=== PATIENT | female | born 1980 | race Caucasian/White ===

== ENCOUNTER 2023-05-19 08:46 | Outpatient (REF) | payer MEDICAID, OTHER, SELFPAY | END 2023-05-19 08:47 | disposition home or self-care (01) | LOC: HO.MAMMO 08:46 | PROVIDERS: Visit Provider Family Medicine | DX: Z12.31 Encounter for screening mammogram for malignant neoplasm of breast (principal) | CPT/HCPCS: 77063; 77067 ==

== ENCOUNTER → 2023-05-19 09:15 | Outpatient (BNV) | payer SELFPAY | PROVIDERS: Visit Provider Radiology Diagnostic Radiology | DX: Z12.31 Encounter for screening mammogram for malignant neoplasm of breast (principal) | CPT/HCPCS: 77063; 77067 ==

== ENCOUNTER 2023-07-15 09:37 | Outpatient (REF) | payer MEDICAID, OTHER, SELFPAY ==
[2023-07-15 14:32] LABS: MANUAL DIFF FLAG NO
[2023-07-15 14:37] LABS: Basophils Absolute Auto 0.1 X10*3/uL (0.0-0.2); Basophils Percent Auto 0.5 % (0-2); Eosinophils Absolute Auto 0.1 X10*3/uL (0.0-0.4); Hematocrit 43.1 % (37.0-47.0); Imm Gran Abs Auto 0.04 X10*3/uL (0.00-0.03); Imm Gran Pct Auto 0.3 % (0.0-0.4); Lymphocytes Absolute Auto 2.2 X10*3/uL (1.2-4.9); Lymphocytes Percent Auto 17.4 % (20-40); Mean Corpuscular HGB Conc 32.5 g/dl (31.0-35.0); Mean Corpuscular Hemoglobin 30.1 pg (27.0-33.0); Mean Corpuscular Volume 92.7 fL (80.0-98.0); Monocytes Absolute Auto 0.8 X10*3/uL (0.1-1.2); Monocytes Percent Auto 6.5 % (2-11); Neutrophils Absolute Auto 9.3 x10*3/uL (2.0-8.3); Neutrophils Percent Auto 74.3 % (45-73); Platelet Count 302 X10*3/uL (160-400); Red Blood Count 4.65 X10*6/uL (4.20-5.50); Red Cell Distribution Width 13.9 % (11.0-16.0); White Blood Count 12.5 X10*3/uL (4.8-10.8)
[2023-07-15 15:18] LABS: Alanine Aminotransferase 9 U/L (0-31); Albumin Level 4.2 g/dL (3.5-5.0); Alkaline Phosphatase 46 U/L (39-117); Anion Gap 12 (12-20); Aspartate Amino Transferase 17 U/L (5-31); Bilirubin Total 0.4 mg/dL (0.0-1.0); Blood Urea Nitrogen 13 mg/dL (9-16); Calcium 9.5 mg/dL (8.4-10.2); Carbon Dioxide 24 mmol/L (22-29); Chloride 108 mmol/L (96-108); Cholesterol 200 mg/dL (<200); Estimated Glomerular Filt Rate > 60; Glucose Fasting 78 mg/dL (60-99); HDL Cholesterol 67 mg/dL (>40); LDL Cholesterol Calculated 117 mg/dL (<100); Potassium 3.8 mmol/L (3.3-5.1); Sodium 140 mmol/L (135-145); Total Protein 7.5 g/dL (6.5-8.0); Triglycerides 82 mg/dL (<150)
[2023-07-15 15:19] LABS: Influenza A PCR NEGATIVE (Negative); Influenza B PCR NEGATIVE (Negative); Resp Syncy Virus RNA Qual PCR NEGATIVE (Negative); SARS COV2 PCR INHOUSE NEGATIVE (Negative)
[2023-07-15 15:20] LABS: TSH reflex Free T4 1.35 uIU/mL (0.32-4.0)
[2023-07-16 03:32] LABS: HIV AB/AG Nonreactive (Nonreactive); HIV Num 1 0.29 S/CO (0.00-0.99); ~HepC Num1 0.09 S/CO (0.00-0.79); ~Hepatitis C Antibody Nonreactive (Nonreactive)
== END 2023-07-15 09:38 | disposition home or self-care (01) ==
LOC: HO.CHCLDS 09:37
PROVIDERS: Visit Provider Family Medicine
DX: Z11.4 Encounter for screening for human immunodeficiency virus [HIV] (principal); Z11.52 Encounter for screening for COVID-19; J06.0 Acute laryngopharyngitis; F50.2 Bulimia nervosa
CPT/HCPCS: 0241U; 36415; 80053; 80061; 84443; 85025; 86803; 87389

== ENCOUNTER 2024-11-08 17:38 | Outpatient (REF) | payer MEDICAID, OTHER, SELFPAY ==
[2024-11-16 09:36] LABS: HPV Genotype 16 Negative (Negative); HPV Genotype 18 Negative (Negative); HPV High Risk Positive (Negative)
== END 2024-11-08 17:39 | disposition home or self-care (01) ==
LOC: HO.CHCLNP 17:38
PROVIDERS: Visit Provider Advanced Practice Midwife
DX: N93.9 Abnormal uterine and vaginal bleeding, unspecified (principal); Z12.4 Encounter for screening for malignant neoplasm of cervix; R87.810 Cervical high risk human papillomavirus (HPV) DNA test positive; N87.0 Mild cervical dysplasia; N39.3 Stress incontinence (female) (male); Z11.3 Encounter for screening for infections with a predominantly sexual mode of transmission; Z97.5 Presence of (intrauterine) contraceptive device
CPT/HCPCS: 87491; 87591; 87626; 87661; 88175

== ENCOUNTER 2024-11-14 12:32 | Outpatient (REF) | payer MEDICAID, OTHER, SELFPAY ==
--- NOTE | ~2024-11-14 | US_ITS ---
CLINICAL HISTORY: bleeding with IUD US pelvis transvaginal Comparison: None Findings: Transvaginal scanning performed. The uterus is 7.9 cm length. Normal myometrium. Well-positioned IUD limits interpretation of the endometrium. Right ovary 1.3 x 1.1 x 1.5 cm. 7 mm follicle noted. Left ovary 2.9 x 1.5 x 2.0 cm. 14 mm simple cyst noted Normal color Doppler of both ovaries. Trace free fluid. IMPRESSION: Well-positioned IUD. Trace free fluid in the cul-de-sac, likely physiologic. This document has been electronically signed by: Chidi Herrera MD on 11/15/2024 17:22:43
--- OUTSIDE RECORDS SUMMARY | 2024-11-14 14:54 | XMS_ITS | Encounter Summary ---
Author Organization [employer] Address [address] [place] [address] Care Team Providers Care Quality Assurance Group Leader Name Role Phone Lupe Leal MD Primary Care Provider [phone] Reason for Visit * Reason Comments Med Refill Encounter Details Date Type Department Care Team ([facility] st Contact Info) Description 10/23/2024 Refill [facility] MED & PEDS [address] [place] [address] Lupe Leal MD [address] [place] [address] Anxiety Social History Tobacco Use Types Packs/Day Years Used Date Smoking Tobacco: Every Day Cigarettes Passive Smoke Exposure: Never Smokeless Tobacco: Never Alcohol Use Standard Drinks/Week Comments Never 0 (1 standard drink = 0.6 oz pur e alcohol) Depression Answer Date Recorded Patient Health Questionnaire-9 Score 16 11/08/2022 Housing Stability Answer Date Recorded What is your housing situation today? I have khari gamboa 09/12/[address] you li ve. Do you have problems with any of the following? None of the above 09/12/2024 Food Insecurity Answer Date Recorded Within the past 12 months, y ou worried that your food would run out before you got money to buy more: Never True 09/12/2024 Within the past 12 months,th e food you bought just didn't last and you didn't have enough money to get more: Never True Transportation Answer Date Recorded In the past 12 months, has l ack of transportation kept you from medical appts, meetings, work or from getting things needed for daily living? No 09/12/2024 Utilities Answer Date Recorded In the past 12 months, has t he electric, gas, oil or water company threatened to shut off services in your home? No 09/12/2024 Depression Answer Date Recorded Patient Health Questionnaire-2 Score 3 11/08/2022 Internet Access Answer Date Recorded Internet Access Q1 Yes 09/12/2024 Internet Access Q2 Not on file 09/12/2024 Comments Unknown Sex and Gender Information Value Date Recorded Sex Assigned at Female 06/28/2022 10:35 AM EDT Legal Sex Female 10:35 AM EDT Gender Identity Female 06/28/2022 10:35 AM EDT Sexual Orientation Choose not to disclose 2021 10:35 AM EDT documented as of this encounter Plan of Treatment Not on file documented as of this encounter Visit Diagnoses Diagnosis Anxiety Anxiety state, unspecified documented in this encounter Additional Health Concerns Assessment Noted Time PHQ-9 Depression Total Score: 16 023 10:38 AM EDT documented as of this encounter Care Teams Quality Assurance Group Leader Relationship Specialty Start Date End Date Lupe Leal MD [address] [place] [address] PCP - General Family Medicine 07/10/20 documented as of this encounter
--- OUTSIDE RECORDS SUMMARY | 2024-11-14 14:54 | XMS_ITS | Encounter Summary ---
Author Organization [employer] Address [address] [place] [address] Care Team Providers Care Building Materials Sales Attendant Name Role Phone Lupe Leal MD Primary Care Provider [phone] Encounter Details Date Type Department Care Team (Latest Contact Info) Description 11/08/2024 Travel Social History Tobacco Use Types Packs/Day Years Used Date Smoking Tobacco: Every Day Cigarettes Passive Smoke Exposure: Never Smokeless Tobacco: Never Alcohol Use Standard Drinks/Week Comments Never 0 (1 standard drink = 0.6 oz pur e alcohol) Depression Answer Date Recorded Patient Health Questionnaire-9 Score 18 11/01/2024 Patient Health Questionnaire-9 Score 18 11/01/2024 Last PHQ-9: Questionnaire Data Not on file 0 11/01/2024 Housing Stability Answer Date Recorded What is your housing situation today? I have khari sing 09/12/[address] you li [...] Answer Date Recorded Patient Health Questionnaire-2 Score 6 11/01/2024 Internet Access Answer Date Recorded Internet Access Q1 Yes 09/12/2024 Internet Access Q2 Not on file 09/12/2024 Comments No Sex and Gender Information Value Date Recorded Sex Assigned at Female 06/28/2022 10:35 AM EDT Legal Sex Female 10:35 AM EDT Gender Identity Female 06/28/2022 10:35 AM EDT Sexual Orientation Choose not to disclose 2021 10:35 AM EDT documented as of this encounter Plan of Treatment Not on file documented as of this encounter Visit Diagnoses Not on filedocumented in this encounter Additional Health Concerns Assessment Noted Time PHQ-9 Depression Total Score: 18 025 11:14 AM EST documented as of this encounter Care Teams Building Materials Sales Attendant Relationship Specialty Start Date End Date Lupe Leal MD [address] [place] [id number] PCP - General Family Medicine 07/10/20 documented as of this encounter
--- OUTSIDE RECORDS SUMMARY | 2024-11-14 14:54 | XMS_ITS | Encounter Summary ---
Author Organization [employer] Address [address] [place] [address] Care Team Providers Care Track Announcer Name Role Phone Lupe Leal MD Primary Care Provider [phone] Reason for Visit * Reason Onset Date Comments Med Refill 04/06/2024 Encounter Details Date Type Department Care Team (Late st Contact Info) Description 04/06/2024 Telephone [facility] [address] [place] [address] Lupe Leal MD [address] [place] [address] Med Refill Social History Tobacco Use Types Packs/Day Years Used Date Smoking Tobacco: Every Day Cigarettes Passive Smoke Exposure: Never Smokeless Tobacco: Never Alcohol Use Standard Drinks/Week Comments Never 0 (1 standard drink = 0.6 oz pur e alcohol) Depression Answer Date Recorded Patient Health Questionnaire-9 Score 16 11/08/2022 Housing Stability Answer Date Recorded What is your housing situation today? I have khari gamboa 06/20/[address] you li ve. Do you have problems with any of the following? None of the above 06/20/2023 Food Insecurity Answer Date Recorded Within the past 12 months, y ou worried that your food would run out before you got money to buy more: Never True 06/20/2023 Within the past 12 months,th e food you bought just didn't last and you didn't have enough money to get more: Never True Transportation Answer Date Recorded In the past 12 months, has l ack of transportation kept you from medical appts, meetings, work or from getting things needed for daily living? No 06/20/2023 Utilities Answer Date Recorded In the past 12 months, has t he electric, gas, oil or water company threatened to shut off services in your home? 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
--- OUTSIDE RECORDS SUMMARY | 2024-11-14 14:54 | XMS_ITS | Encounter Summary ---
Author Organization [employer] Address [address] [place] [address] Care Team Providers Care Simulation Technician Name Role Phone Lupe Leal MD Primary Care Provider [phone] Reason for Referral * Imaging (Urgent) - Authorized Specialty Diagnoses / Procedures Referred By Contac t Referred To Contact Radiology Diagnoses Abnormal uterine bleeding Checking of intrauterine device Procedures US Pelvis Transvaginal Chantel Feliz CNM [address] [place] [address] Phone: tel: fax: [address] Phone: tel: fax: Referral ID Status Reason Start Date Expiration Date V isits Requested Visits Authorized [id number] Authorized 11/08/2024 11/08/2025 1 1 * Imaging (Urgent) - Authorized Specialty Diagnoses / Procedures Referred By Contac t Referred To Contact Radiology Diagnoses Abnormal uterine bleeding Checking of intrauterine device Procedures Us Pelvis complete Chantel Feliz CNM [address] [place] [address] Phone: tel: fax: [address] Phone: tel: fax: Referral ID Status Reason Start Date Expiration Date V isits Requested Visits Authorized [id number] Authorized 11/08/2024 11/08/2025 1 1 Reason for Visit * Reason Comments Gynecologic Exam Encounter Details Date Type Department Care Team (Latest Contact Info) Description 11/08/2024 11:00 AM EDT Procedure Visit [facility] MED & PEDS [address] [place] [address] Chantel Feliz CNM [address] [place] [address] Abnormal uterine bleeding (Primary Dx); Checking of intrauterine device; Cervical cancer screening; Encntr screen for infections w sexl mode of transmiss Social History Tobacco Use Types Packs/Day Years [...] AM EDT documented as of this encounter Last Filed Vital Signs Vital Sign Reading Time Taken Comments Blood Pressure 106/59 11/08/2024 10:47 AM EDT Pulse 74 11/08/2024 10:47 AM EDT Temperature 36.7 ??C (98.1 ??F) 11/08/2024 10:47 AM E DT Respiratory Rate 20 11/08/2024 10:47 AM EDT Oxygen Saturation 98% 11/08/2024 10:47 AM EDT Inhaled Oxygen Concentration - - Weight 50.8 kg (112 lb) 11/08/2024 10:47 AM EDT Height 154.9 cm (5' 1 ) 11/08/2024 10:47 AM EDT Body Mass Index 21.16 11/08/2024 10:47 AM EDT documented in this encounter Progress Notes * Chantel Feliz CNM - 11/08/2024 11:00 AM EDT Subjective Patient ID: Ese Bowen is a 44 y.o. female who presents for AUB Mirena inserted in 2018. Using for menstrual suppression. Largely amenorrheic until about 3 months ago. Now notes monthly bleeding with cramping. Last sexually active about 4 months ago. . No other vaginal or urinary symptoms. Wonders if she is menopausal. Notes some vasomotor symptoms whichare manageable. Pap NIL/HPV neg 09/2020. Normal TSH and hemoglobin/hematocrit in 2022. Patient seen in conjunction with Marjorie Garcia, NATALIE student. I was present for and confirmed all pertinent elements in the history, exam, assessment of the patient, and the plan of care, and agree with all findings. Review of Systems Genitourinary: Positive for menstrual problem. Negative for dyspareunia, dysuria, frequency, genital sores, hematuria, pelvic pain, urgency, vaginal bleeding, vaginal discharge and vaginal pain. No abnormal pap, no abnormal bleeding Objective BP 106/59 (BP Location: Right arm, Patient Position: Sitting, BP Cuff Size: Adult) Pulse 74 Temp 98.1 ??F (36.7 ??C) (Oral) Resp 20 Ht 5' 1 (1.549 m) Wt 112 lb (50.8 kg) SpO2 98% BMI 21.16 kg/m?? Physical Exam Exam conducted with a boarder machine present (Chantel Feliz CNM). Constitutional: Appearance: Normal appearance. Genitourinary: General: Normal vulva. Labia: Right: No rash, tenderness, lesion or injury. Left: No rash, tenderness, lesion or injury. Vagina: Normal. No signs of injury and foreign body. No vaginal discharge, erythema, tenderness, bleeding or lesions. Cervix: No cervical motion tenderness, discharge, friability, lesion, erythema, cervical bleeding or eversion. Uterus: Normal. Not enlarged and not tender. Adnexa: Right adnexa normal and left adnexa normal. Right: No mass, tenderness or fullness. Left: No mass, tenderness or fullness. Comments: IUD strings noted. Body of IUD nonpalpable Neurological: Mental Status: She is alert. Psychiatric: Mood and Affect: Mood normal. Behavior: Behavior normal. Assessment/Plan Diagnoses and all orders for this visit: Abnormal uterine bleeding - POCT , urine manually resulted - STI testing add on (NG, CT, Trich) - Pap Smear - Us Pelvis complete; Future - US Pelvis Transvaginal; Future test negative. Sounds like resumption of monthly menses with cramping, which makes sense as IUD as only indicated for menstrual suppression for 5 years. Pap and STI testing sent, ultrasoundordered as precaution. If all normal, would advise replacement of Could consider checking FSH/estradiol but these lab results vary widely in perimenopause. If vasomotor symptoms bothersome, will offer treatment. Checking of intrauterine device - Us Pelvis complete; Future - US Pelvis Transvaginal; Future Benign exam today. Reviewed Mirena indicated for 8 years for contraception, but 5 years for treatment of heavy menses. If no worrisome findings on labs/ultrasound, would advise replacement. Cervical cancer screening - Pap Smear Cotest today. Repeat 5 years if normal/HPV negative. Encntr screen for infections w sexl mode of transmiss - STI testing add on (NG, CT, Trich) Pap based STI testing sent as precaution. documented in this encounter Plan of Treatment Scheduled Orders Name Type Priority Associated Diagnoses Orde r Schedule STI testing add on (NG, CT, Trich) Pathology and Cytology Routine Abnormal uterine bleeding Encntr screen for infections w sexl mode of transmiss Ordered: 11/08/2024 Pap Smear Pathology and Cytology Routine Abnormal uterine bleeding Cervical cancer screening Ordered: 11/08/2024 Us Pelvis complete Imaging Urgent Abnormal uterine bleeding Checking of intrauterine device Expected: 11/08/2024, Expires: 11/08/2025 US Pelvis Transvaginal Imaging Urgent Abnormal uterine bleeding Checking of intrauterine device Expected: 11/08/2024, Expires: 11/08/2025 documented as of this encounter Procedures Procedure Name Priority Date/Time Associated Diagnosis Comments POCT , URINE Routine 11/08/2024 11:45 AM EDT Abnormal uterine bleeding documented in this encounter Results * POCT , urine manually resulted (11/08/2024 11:45 AM EDT) Preg Test, Ur Negative Negative, Indeterminate, None Detected, Invalid, Specimen unsatisfactory for evaluation, Weakly Positive QC Media Lot # Comment:[id number] Lot# Expiration Date Comment:06/20/2025 Urine 11/08/2024 11:4 5 AM EDT Chantel Feliz CNM POINT OF CARE TEST ENTER/ EDIT ORDERABLES Final Result documented in this encounter Visit Diagnoses Diagnosis Abnormal uterine bleeding- Primary Unspecified disorder of menstruation and other abnormal bleeding from female genital tract Checking of intrauterine device Cervical cancer screening Screening for malignant neoplasm of the cervix Encntr screen for infections w sexl mode of transmiss documented in this encounter Additional Health Concerns Assessment Noted Time PHQ-9 Depression Total Score: 18 025 11:14 AM EST documented as of this encounter Care Teams Simulation Technician Relationship Specialty Start Date End Date Lupe Leal MD [address] [place] [address] PCP - General Family Medicine 07/10/20 documented as of this encounter
--- OUTSIDE RECORDS SUMMARY | 2024-11-14 14:54 | XMS_ITS | Encounter Summary ---
Author Organization [employer] Address [address] [facility] [place] [address] Care Team Providers Care Oracle Apex Developer Name Role Phone Lupe Leal MD Primary Care Provider Encounter Details Date Type Department Care Team (Latest Contact Info) Description 08/14/2021 Abstract [facility] Dental, Provider, DDS Social History Tobacco Use Types Packs/Day Years Used Date Smoking Tobacco: Never Assessed Comments Unknown Sex and Gender Information Value [...] Diagnoses Not on filedocumented in this encounter Care Teams Oracle Apex Developer Relationship Specialty Start Date End Date Lupe Leal MD [address] [place] [id number] PCP - General Family Medicine 07/10/20 documented as of this encounter
--- OUTSIDE RECORDS SUMMARY | 2024-11-14 14:54 | XMS_ITS | Encounter Summary ---
Author Organization [employer] Address [address] [place] [address] Care Team Providers Care Java Flex Developer Name Role Phone Lupe Leal MD Primary Care Provider [phone] Encounter Details Date Type Department Care Team (Latest Contact Info) Description 05/24/2019 Abstract [facility] Dental, Provider, DDS Social [...] on filedocumented in this encounter Care Teams Java Flex Developer Relationship Specialty Start Date End Date Lupe Leal MD [address] [place] [address] PCP - General Family Medicine 07/10/20 documented as of this encounter
--- OUTSIDE RECORDS SUMMARY | 2024-11-14 14:54 | XMS_ITS | Clinical Summary ---
Author Organization [employer] Address [address] [facility] [address] [place] [address] Care Team Providers Care Sheet Manager Name Role Phone Lupe Leal MD Primary Care Provider [phone] Allergies No known active allergies Medications * This document contains information received from the source organization and may not represent a complete record from that organization. triamcinolone (Kenalog) 0.5 % ointment apply by topical route 2 times every day a thin layer to the affected area(s) 04/12/20 22 Active nicotine polacrilex (Nicorette) 2 MG gum chew 1 piece of gum by oral route every 2 hours as needed and as directed 12/31/19 21 Active Nicotine 21-14-7 MG/24HR kit Use 21 mg patch for 4 weeks, then 14 mg for 2 weeks and then 7 mg for 2 weeks (8 weeks total) 12/31/19 21 Active meclizine (Antivert) 25 MG tablet take 1 tablet by oral route 3 times every day as needed 11/24/19 22 Active aspirin-acetam inophen-caffei ne (Excedrin Migraine) 250-250-65 MG tablet Take 2 tablet every 8 hours as needed for headache 11/24/19 22 Active gabapentin (Neurontin) 300 MG capsuleIndicat ions:Anxiety Take 1 capsule (300 mg) by mouth at bedtime. 90 capsule 1 10/12/19 24 Active Multiple Vitamin (multivitamin) tablet Take 1 tablet by mouth in the morning. 90 tablet 1 11/11/19 24 Active magnesium, as gluconate, (Magonate) 500 (27 Mg) MG tablet Take 1 tablet (27 mg) by mouth 2 times daily. 180 tablet 1 11/11/19 24 Active folic acid (Folvite) 400 MCG tablet Take 1 tablet (0.4 mg) by mouth in the morning. 90 tablet 1 11/11/19 24 Active thiamine (Vitamin B-1) 500 MG tablet Take 1 tablet (500 mg) by mouth in the morning. 90 tablet 1 11/11/19 24 Active topiramate (Topamax) 100 MG tablet TAKE ONE TABLET EVERY NIGHT AT BEDTIME 90 tablet 1 08/17/20 24 Active escitalopram (Lexapro) 10 MG tabletIndicati ons:Anxiety Take 1 tablet (10 mg) by mouth Once per day. 30 tablet 2 09/12/19 25 025 Active hydrOXYzine pamoate (Vistaril) 25 MG capsuleIndicat ions:Anxiety TAKE ONE CAPSULE THREE TIMES DAILY NEEDED FOR ANXIETY 270 capsule 1 10/23/19 25 Active busPIRone (Buspar) 7.5 MG tablet Take 1 tablet (7.5 mg) by mouth 2 times daily. 60 tablet 2 11/06/19 25 Active QUEtiapine (SEROquel) 50 MG tablet Take 1 tablet (50 mg) by mouth at bedtime. 90 tablet 1 11/06/19 25 Active QUEtiapine (SEROquel) 50 MG tablet Take 1 tablet (50 mg) by mouth at bedtime. 90 tablet 1 03/02/20 24 025 Discontinued(Re order (will not trigger notification to Pharmacy)) hydrOXYzine pamoate (Vistaril) 25 MG capsuleIndicat ions:Anxiety TAKE ONE CAPSULE BY MOUTH THREE TIMES DAILY NEEDED FOR ANXIETY 270 capsule 1 04/18/20 24 025 Discontinued busPIRone (Buspar) 7.5 MG tablet Take 1 tablet (7.5 mg) by mouth 2 times daily. 60 tablet 2 08/31/19 25 025 Discontinued(Re order (will not trigger notification to Pharmacy)) Active Problems Problem Noted Date Diagnosed Date Generalized bloating 03/02/2024 Assessment & Plan (03/02/2024 6:04 PM EDT): Relevant orders: Buspirone (Buspar) 7.5 MG tablet -Pt was advised if bloating continues despite using the combination of meds, to move forward with the labs so we can properly access her condition. Grief 11/16/2023 Moderate episode of recurrent major depressive d isorder 11/16/2023 Sore throat and laryngitis 07/15/2023 Assessment & Plan (07/15/2023 8:53 AM EST): Upon examination was noticed that patient was congested, however, there were no signs of infections. Therefore, patient will be prescribed antibiotics and will be tested for Rap.COVID, Flu, and Influenza. Bulimia nervosa, purging type 11/08/2022 Assessment & Plan (03/02/2024 6:07 PM EDT): Pt advised to continue medication as prescribed -Relevant orders: Topiramate (Topamax) 100 MG tablet Assessment & Plan (07/15/2023 8:58 AM EST): Patient still presents visit with complaints of bulimia nervosa; patient will be prescribed Topiramate. Assessment & Plan (04/07/2023 10:58 AM EDT): Will send labs to check levels. Anxiety 11/08/2022 Assessment & Plan (03/02/2024 6:05 PM EDT): -Pt was advised to continue medication as prescribed Relevant orders: Quetiapine (SEROquel) 50 MG tablet Assessment & Plan (01/17/2024 11:43 AM EDT): Patient reports she is doing ok in terms of her anxiety, but feels since start SGA her compulsion has worsening and is eating more than she used to. Will d/ seroquel. Assessment & Plan (11/17/2023 9:34 AM EDT): At this moment, will continue with buspar, lexapro and seroquel for her depression/anxiety, higher dose topamax helpful for her binging. At this moment recommend to cont with therapy. Try to reattempt contact with [facility] [employer] and will f/up in 4-6 weeks via telemedicine Assessment & Plan (11/18/2023 10:52 AM EDT): Patient has worsening of her symptoms at this moment, will add buspar to her regimen, will add morning Seroquel as a adjuvant to her SNRI. Cont afternoon seroquel and will incr dose of topamax to help with her bulimia, I have request to talk with patient to process what has been happening. Will f/up in 1 week. Assessment & Plan (07/18/2023 9:41 AM EST): Stable, no further changes, recommended to f/up with therapist. Assessment & Plan (05/23/2023 9:15 AM EDT): Placed on higher dose lexapro, rechecking in 6 weeks. Added seroquel for potentiation. Cont hydroxyzine. At this point, will send referral to therapy (may have to use reel hooker) and prescriber. Failed 2 meds (SSRI, snri) and adjuctive with SGA. Assessment & Plan (04/07/2023 10:58 AM EDT): Poor anxiety management, currently on 200 mg on sertraline. At this point will transition her out of sertraline and start on Lexapro 10 mg. Advised patient to take 1 1/2 for 3 days, then 1, then 1/2 and then discontinue and start on low dose lexapro. Will follow up in 6 weeks. Encounters * This document contains information received from the source organization and may not represent a complete record from that organization. Date Type Department Care Team Description 11/08/2024 11:00 AM EDT Procedure Visit [facility] [address] [place] [address] Chantel Feliz CNM Abnormal uterine bleeding (Primary Dx); Checking of intrauterine device; Cervical cancer screening; Encntr screen for infections w sexl mode of transmiss 11/08/2024 Travel 11/05/2024 Refill [facility] [address] [place] [address] Lupe Leal MD 10/23/2024 Refill [facility] [address] [place] [address] Lupe Leal MD Anxiety 10/03/2024 3:20 PM EST Office Visit [facility] [address] [place] [address] Angie Canela MD Anxiety (Primary Dx); Vaginal bleeding 10/03/2024 Travel 10/03/2024 Telephone [facility] [address] [place] [address] Lupe Leal MD Nurse Triage 09/12/2024 11:15 AM EST Office Visit [facility] [address] [place] [address] Calypso, Laura, HAIR WORKER Anxiety (Primary Dx) 09/12/2024 Travel 09/10/2024 Telephone [facility] [address] [place] [address] Lupe Leal MD Nurse Triage 08/31/2024 Refill [facility] [address] [place], [place] [phone] Lupe Leal MD 08/17/2024 Refill [facility] [address] [place] [address] Lupe Leal MD from Last 3 Months Immunizations Name Administration Dates Next Due Influenza injectable quadrivalent preservative f ree 07/31/2021,07/10/2020 Social History Tobacco Use Types Packs/Day Years Used Date Smoking Tobacco: Every Day Cigarettes Passive Smoke Exposure: Never Smokeless Tobacco: Never Tobacco Cessation:Ready to Q uit: No; Counseling Given: Yes Alcohol Use Standard Drinks/Week Comments Never 0 [...] not to disclose 2021 10:35 AM EDT Last Filed Vital Signs Vital Sign Reading [...] Mass Index 21.16 11/08/2024 10:47 AM EDT Plan of Treatment Health Maintenance Due Date Last Done Comments DTaP/Tdap/Td Vaccines (1 - Tdap) 1999 Hepatitis B Vaccines (1 of 3 - 19+ 3-dose series) 1999 Pneumococcal Vaccine: Pediatrics (0 to 5 Years) and At-Risk Patients (6 to 49) Years) (1 of 2 - PCV) 1999 COVID-19 Vaccine (4 - 2023-2 5 season) 2024 07/03/2021, 01/03/2021, 12/13/2020 Influenza Vaccine (#1) 2024 , 07/10/2020 Depression Monitoring (PHQ-9) 05/04/2025, 11/01/2024 Mammogram 05/19/2025 05/19/2023 Alcohol/Substance Use Screening 09/12/2025 09/12/2024 SDOH Screening 09/12/2025 09/12/2024 Tobacco Screening 10/03/2025 10/03/2024 Cervical Cancer Screening 10/07/2025 HPV/Cotest 10/07/2025 10/07/2020 Pap Smear 10/07/2025 10/07/2020 Depression Screening 11/01/2025 11/01/2024, 11/01/2024 Family Planning (PISQ) 11/08/2025 11/08/2024 Lipid Panel 07/15/2028 07/15/2023, 07/10/2020 Zoster Vaccines (1 of 2) 2030 RSV Patients and Patients Aged 60 years or older (1 - 1-dose 75+ series) 2055 HIV Screening Completed 07/15/2023, 07/10/2020 Hepatitis C Screening Completed 07/15/2023 , 07/10/2020 HIB Vaccines Aged Out No longer eligi ble based on patient's age to complete this topic HPV Vaccines Aged Out No longer eligi ble based on patient's age to complete this topic Hepatitis A Vaccines Aged Out No long er eligible based on patient's age to complete this topic IPV Vaccines Aged Out No longer eligi ble based on patient's age to complete this topic Meningococcal Vaccine Aged Out No justine armida eligible based on patient's age to complete this topic RSV under 20 months Aged Out No longe r eligible based on patient's age to complete this topic Rotavirus Vaccines Aged Out No longer eligible based on patient's age to complete this topic Procedures Procedure Name Priority Date/Time Associated Diagnosis Comments POCT , URINE Routine 11/08/2024 11:45 AM EDT Abnormal uterine bleeding HEPATITIS C ANTIBODY Routine 07/15/2023 9:41 AM EST Encounter for health-related screening HIV 1/2 ANTIGEN/ANTIBODY, FOURTH GENERATION W/RFL Routine 07/15/2023 9:41 AM EST Encounter for health-related screening LIPID PANEL, STANDARD Routine 07/15/2023 9:41 AM EST Bulimia nervosa, purging type BI MAMMOGRAM SCREENING TOMOSYNTHESIS BILATERAL Routine 05/19/2023 9:30 AM EDT HPV MRNA E6/E7 Routine 10/07/2020 2:33 PM EST THINPREP IMAGING SYSTEM PAP Routine 10/07/2020 2:33 PM EST from Last 3 Months or Most Recently Relevant to Health Maintenance Results * POCT , urine manually resulted (11/08/2024 11:45 AM EDT) Preg Test, Ur Negative Negative, Indeterminate, None Detected, Invalid, Specimen unsatisfactory for evaluation, Weakly Positive QC Media Lot # Comment:[id number] Lot# Expiration Date Comment:06/20/2025 Urine 11/08/2024 11:4 5 AM EDT Chantel Feliz CNM POINT OF CARE TEST ENTER/ EDIT ORDERABLES Final Result * Hepatitis C Ab (07/15/2023 9:41 AM EST) Hepatitis C Antibody Nonreactive Nonreactive [facility] Comment:Antibodies to HCV no t detected; does not exclude early acuteHCV infection. Blood 07/15/2023 9:41 AM EST 07/15/2023 2:22 PM EST Lupe Leal MD LAB BLOOD ORDERABLES Final Re sult Performing Organization Address City/[facility]/ZIP Co de Phone Number [facility] [address] [place] [phone] * HIV-1/2 Antigen and Antibodies, Fourth Generation, with Reflexes (07/15/2023 9:41 AM EST) HIV AB/AG Nonreactive Nonreactive [facility] Comment:HIV-1 p24 Ag and/or HIV-1/HIV-2 Ab not detected.A test result that is nonreactive does not exclude thepossibility of exposure to or infection with HIV-1 and/orHIV-2. Nonreactive results in this assay for individualswith prior exposure to HIV-1 and/or HIV-2 may be due toantigen and antibody levels that are below the limit ofdetection of this assay.The HEAL[employer] HIV Ag/Ab Combo assay result andsupplemental assay results should be interpreted inconjunction with the patient's clinical presentation,history and other laboratory results. If the results areinconsistent with clinical evidence, additional testing issuggested to confirm the result. Blood Venous blood specimen / Unknown 07/15/2023 9:41 AM EST 07/15/2023 2:22 PM EST us Lupe Leal MD LAB BLOOD ORDERABLES Final Re sult Performing Organization Address City/[facility]/ZIP Co de Phone Number [facility] [address] [place] [phone] * (ABNORMAL) Lipid Panel, Standard (07/15/2023 9:41 AM EST) Triglycerides 82 <150 mg/dL [facility] Comment:Desirable Triglyceri de: less than 150 mg/dLBorderline High Triglyceride 150-199 mg/dLHigh Triglyceride: 200-499 mg/dLVery High Triglyceride: greater than or equal to 5OO mg/dL Cholesterol 200(H) <200 mg/dL [facility] Comment:Desirable Cholestero l: less than 200 mg/dLBorderline High Cholesterol: 200-239 mg/dLHigh Cholesterol: greater than 239 mg/dL LDL Cholesterol Calculated 117(H) <100 mg/dL [facility] Comment:Desirable LDL: less than 100 mg/dLNear Optimal/Above Optimal LDL: 110- 129 mg/dLBorderline High LDL: 130-159 mg/dLHigh LDL: 160-189 mg/dLVery High LDL: greater than or equal to 190 mg/dL HDL Cholesterol 67 >40 mg/dL [facility] Comment:Desirable HDL: great er than 40 mg/dL Note: This HDL assay may give artificially low results in patients with liver disease. Blood Venous blood specimen / Unknown 07/15/2023 9:41 AM EST 07/15/2023 2:26 PM EST us Lupe Leal MD LAB BLOOD ORDERABLES Final Re sult [facility] [address] [place] [phone] * BI Mammogram Screening Tomosynthesis Bilateral (05/19/2023 9:30 AM EDT) Anatomical Region Laterality Modality Breast Bilateral Mammography 05/19/2023 9:30 AM EDT Narrative 06/07/2023 1:10 PM EDT ? [facility] [place] ? [address] ?[place] [address] ? Mammography Report ? Signed ? Patient: Ese Bowen ?MR#: [id number] ?? 53 ? : 1980 ?Acct:[id number] ? Age/Sex: 42 / F ?ADM Date: 09/21/23 ? Loc: HO.MAMMO ? Attending Dr: Lupe Leal MD ? Ordering Physician: Lupe Leal MD ?Results: 1Nega ?? tive ? Date of Service: 05/19/23 ?Follow Up: 1 Year From Orig ?? inal Mammogram ? Procedure(s): MM tomosynthesis screening BI ?? Accession Number(s): [id number] ? cc: Lupe Leal MD ? EXAMINATION: ?? MM SCREENING DIGITAL BREAST TOMOSYNTHESIS, BILATERAL ? CLINICAL INFORMATION: ? Screening. Asymptomatic. ? COMPARISON: ?? Mammography: This is a baseline study ? TECHNIQUE: ?? Digital breast tomosynthesis is performed in both the craniocaudal and ?? mediolateral oblique views along with computer-aided detection (CAD). ?? Synthesized 2D images are generated from the tomosynthesis. ? FINDINGS: ?? The breasts are extremely dense, which lowers the sensitivity of ?? mammography (ACR BI-RADS breast composition Category d). ? There are no significant masses, abnormal calcifications, or other ?? abnormalities. ? MM/MM tomosynthesis screening BI ?? IMPRESSION: ?? No mammographic evidence of malignancy. ? ASSESSMENT: ? BI-RADS BI-RADS 1 - Negative ? RECOMMENDATION: ?? Routine annual mammography screening. ? 1 year F/U ? This examination should not preclude the clinical evaluation of a ?? suspicious palpable abnormality. ? This patient's information was entered into a reminder system with a ?? target due date for their next mammogram. ? Dictated By: ?Analisa Vaughn MD ? Signed By: ?<Electronically signed by Analisa Vaughn MD in OV> ? 10/10/23 1306 ? DD/ 9 ? TD/TT: ? Technical Sme: ? Procedure Note Donotuseinterpreter, Image - 06/07/2023 [place] [facility] [address] [place] [address] Mammography Report Signed Patient: Yoana Bowen#: [id number] 53 : 1980Acct:[id number] Age/Sex: 42 / FADM Date: 05/19/23 Loc: HO.MAMMO Attending Dr: Lupe Leal MD Ordering Physician: Lupe Leal MDResults: 1Nega tive Date of Service: 05/19/23Follow Up: 1 Year From Orig inal Mammogram Procedure(s): MM tomosynthesis screening BI Accession Number(s): [id number] cc: Lupe Leal MD EXAMINATION: MM SCREENING DIGITAL BREAST TOMOSYNTHESIS, BILATERAL CLINICAL INFORMATION: Screening. Asymptomatic. COMPARISON: Mammography: This is a baseline study TECHNIQUE: Digital breast tomosynthesis is performed in both the craniocaudal and mediolateral oblique views along with computer-aided detection (CAD). Synthesized 2D images are generated from the tomosynthesis. FINDINGS: The breasts are extremely dense, which lowers the sensitivity of mammography (ACR BI-RADS breast composition Category d). There are no significant masses, abnormal calcifications, or other abnormalities. MM/MM tomosynthesis screening BI IMPRESSION: No mammographic evidence of malignancy. ASSESSMENT: BI-RADS BI-RADS 1 - Negative RECOMMENDATION: Routine annual mammography screening. 1 year F/U This examination should not preclude the clinical evaluation of a suspicious palpable abnormality. This patient's information was entered into a reminder system with a target due date for their next mammogram. Dictated By: Analisa Vaughn MD Signed By: <Electronically signed by Analisa Vaughn MD in OV> 06/07/23 1306 DD/ 0930 TD/TT: Technical Sme: us Lupe Leal MD IMG BI PROCEDURES Final Resul t * THINPREP TIS PAP (10/07/2020 2:33 PM EST) Clinical Information: None given [facility] COMMENT SEE COMMENT [facility] Comment: EXPLANATORY NOTE: ? The Pap is a screening test for cervical cancer. It is ?? not a diagnostic test and is subject to false negative ?? and false positive results. It is most reliable when a ?? satisfactory sample, regularly obtained, is submitted ?? with relevant clinical findings and history, and when ?? the Pap result is evaluated along with historic and ?? current clinical information. ?? COMMENT: This Pap test has been evaluated with computer assisted technology. [facility] Monomer Purification Operator : SEE COMMENT [facility] Comment: RXB, CT(ASCP) CT screening location: [address] ??[id number] Interpretation/R esult: Negative for intraepithelial lesion or malignancy. [facility] LMP: NONE [facility]IVEN [facility] Prev. BX: NONE [facility]IV[facility] Prev. PAP: NONE [facility]IV[facility] SOURCE: None given [facility] Statement Of Adequacy: SEE COMMENT [facility] Comment: Satisfactory for evaluation. Endocervical/transformation zone component present. Age and/or menstrual status not provided 10/07/2020 2:33 PM EST us Lupe Leal MD LAB PATHOLOGY ORDERABLES Isabel calvin Result [facility] [address] * HPV mRNA E6/E7 (10/07/2020 2:33 PM EST) HPV nRNA E6/E7 Not Detected Not Detected [facility] Comment: Methodology: Dining Room Hostess-Mediated Amplification This assay detects E6/E7 viral messenger RNA (mRNA) from 14 high-risk HPV types (16,18,31,33,35,39,45,51,52,56,58,59,66,68). ? The analytical performance characteristics of this assay have been determined by [employer]. The modifications have not been cleared or approved by the FDA. This assay has been validated pursuant to the CLIA regulations and is used for clinical purposes. ?? For additional information, please refer to http://education.[employer]/UVI513m2 (This link if provided for information/ educational purposes only.) 10/07/2020 2:33 PM EST us Lupe Leal MD LAB BLOOD ORDERABLES Final Re sult [facility] [address] from Last 3 Months or Most Recently Relevant to Health Maintenance Insurance [employer] [facility] Care Teams Sheet Manager Relationship Specialty Start Date End Date Lupe Leal MD [address] [place] [phone] PCP - General Family Medicine 07/10/20
--- OUTSIDE RECORDS SUMMARY | 2024-11-14 14:54 | XMS_ITS | Encounter Summary ---
Author Organization [employer] Address [address] [facility] [address] [place] [address] Care Team Providers Care Aircraft Technician Name Role Phone Lupe Leal MD Primary Care Provider [phone] Reason for Visit * Reason Onset Date Comments Nurse Triage 10/03/2024 Encounter Details Date Type Department Care Team ([facility] st Contact Info) Description 10/03/2024 Telephone [facility] [address] [place] [address] Lupe Leal MD [address] [place], [place] [phone] Nurse Triage Social History Tobacco Use Types Packs/Day Years [...] encounter Miscellaneous Notes * Telephone Encounter - Nettie Baumann RN - 10/03/2024 11:03 AM EST Triage call with [facility] [place] [id number], Chanelle. Pt reports having some increased anxiety for last few weeks. Pt was seen in office 09/12/24 and Pt has been taking lexapro 10mg as restarted that day, seroquel with 2 tablets at bedtime some days, continues with buspar and hydroxizine as prescribed but, Pt feels is taking so much medication and just wants a referral to psychiatrist and to see PCP. PCP is unavailable for apt at this time. Pt is notsuicidal or wanting to hurt anyone else. Pt is just wanting follow up with provider as advised fromOV 09/12/24. . Pt is offered ASK apt in [facility] today at 320[address] and agrees with this disposition. Pt is given home care advice, to go for walk as needed to change environment, encouraged liquids and do something enjoyable, listening to music, reading, hobby. Pt agrees with this advice. Pt already has crisis number if needed. Insurance is verified as active prior to booking. Protocol Used: Anxiety and Panic Attack (Adult) Protocol-Based Disposition: See in Office or Video Visit within 3 Days Video visit not offered Positive Triage Questions: * Moderate anxiety (e.g., persistent or frequent anxiety symptoms; interferes with sleep, school, or work) * Panic attacks are increasing in frequency * Patient wants to be seen * All higher-acuity triage questions were negative Care Advice Discussed: * Note to Triager - Anxiety Symptoms * Reassurance and Education - Anxiety * Anxiety - Healthy Lifestyle Tips * Stress Reduction * Reasons To Call Back - Anxiety or panic attacks continue - You feel like harming yourself - You become worse * Telephone Encounter - Cara Doll - 10/03/2024 10:15 AM EST Symptom: Depression Outcome: Schedule an appointment to be seen within 3 days Reason: Caller denied all higher acuity questions The caller accepted this outcome. documented in this encounter Plan of Treatment Not on file documented as of this encounter Visit Diagnoses Not on filedocumented in this encounter Additional Health Concerns Assessment Noted Time PHQ-9 Depression Total Score: 16 023 10:38 AM EDT documented as of this encounter Care Teams Aircraft Technician Relationship Specialty Start Date End Date Lupe Leal MD [address] [place] [phone] PCP - General Family Medicine 07/10/20 documented as of this encounter
--- OUTSIDE RECORDS SUMMARY | 2024-11-14 14:54 | XMS_ITS | Encounter Summary ---
Author Organization [employer] Address [address] [place] [address] Care Team Providers Care Camp Boss Name Role Phone Lupe Leal MD Primary Care Provider [phone] Reason for Visit * Reason Onset Date Comments Med Refill 11/05/2024 Encounter Details Date Type Department Care Team ([facility] st Contact Info) Description 11/05/2024 Refill [facility] [address] [place] [address] Lupe Leal MD [address] [place] [address] Social History Tobacco Use Types Packs/Day Years [...] is your housing situation today? I have kharitaran gamboa 09/12/[address] you [...] encounter Miscellaneous Notes * Telephone Encounter - Cara Doll - 11/05/2024 9:29 AM EDT TC from pt requesting medication refill. Medications needing refill : busPIRone (Buspar) 7.5 MG tablet QUEtiapine (SEROquel) 50 MG tablet To be sent to: [facility] - [place], [place] - [facility] [address] documented in this encounter Plan of Treatment Not on file documented as of this encounter Visit Diagnoses Not on filedocumented in this encounter Additional Health Concerns Assessment Noted Time PHQ-9 Depression Total Score: 18 025 11:14 AM EST documented as of this encounter Care Teams Camp Boss Relationship Specialty Start Date End Date Lupe Leal MD [address] [place] [address] PCP - General Family Medicine 07/10/20 documented as of this encounter
--- OUTSIDE RECORDS SUMMARY | 2024-11-14 14:54 | XMS_ITS | Encounter Summary ---
Author Organization [employer] Address [address] [place] [address] Care Team Providers Care Caramel Maker Name Role Phone Lupe Leal MD Primary Care Provider [phone] Reason for Visit * Reason Onset Date Comments Nurse Triage 09/10/2024 Encounter Details Date Type Department Care Team ([facility] st Contact Info) Description 09/10/2024 Telephone [facility] [address] [place] [address] Lupe Leal MD [address] [place], [place] [id number] Nurse Triage Social History Tobacco Use Types [...] Telephone Encounter - Nettie Baumann RN - 09/10/2024 12:58 PM EST Triage call with [facility] [place] flight security [place] [id number] Pt reports it has been a year since committed suicide. Pt is having increased pressure and anxiety. Pt is at work at time of call and reports is able to go to work and finds it helpful. Pt had been speaking with a psychologist on line who speaks [place] but, found that it wasn't good for me and ended this help. Pt has since found a [place] speaking psychologist that would be inperson but, this person is not covered by Pt insurance. Pt doesn't have the name of this provider at time of call. Pt requesting to speak with provider. Pt is taking prescribed medication with some relief. Pt is given home care advice to rest as much as possible at home, stay away from caffeinated beverages, eat healthy and continue medications as prescribed. ASK apt with SHADY Lau in [facility] 09/12/24 @1115am. Pt is advised that behavioral health is available when comes for apt. Pt agrees with disposition. Insurance is verified as active prior to booking. Protocol Used: Anxiety and Panic Attack (Adult) Protocol-Based Disposition: See in Office or Video Visit within 3 Days Video visit not offered Positive Triage Question: * Patient wants to be seen * All higher-acuity triage questions were negative Care Advice Discussed: * Note to Triager - Anxiety Symptoms * Reassurance and Education - Anxiety * Anxiety - Healthy Lifestyle Tips * Avoid Caffeine * Avoid Triggers of Anxiety * Stress Reduction * Reasons To Call Back - Anxiety or panic attacks continue - You feel like harming yourself - You become worse * Telephone Encounter - Cara Doll - 09/10/2024 11:53 AM EST Symptom: Anxiety or Panic Attack Outcome: Schedule an appointment to be seen within 3 days Reason: Caller denied all higher acuity questions The caller accepted this outcome. Valve Maker needed documented in this encounter Plan of Treatment Not on file documented as of this encounter Visit Diagnoses Not on filedocumented in this encounter Additional Health Concerns Assessment Noted Time PHQ-9 Depression Total Score: 16 023 10:38 AM EDT documented as of this encounter Care Teams Caramel Maker Relationship Specialty Start Date End Date Lupe Leal MD [address] [place] [id number] PCP - General Family Medicine 07/10/20 documented as of this encounter
--- OUTSIDE RECORDS SUMMARY | 2024-11-14 14:55 | XMS_ITS | Encounter Summary ---
Author Organization [employer] Address [address] [place] [address] Care Team Providers Care Operations Lead Name Role Phone Lupe Leal MD Primary Care Provider [phone] Encounter Details Date Type Department Care Team (Latest Contact Info) Description 09/26/2018 [facility] CONVERSIONS Dental, Provider, DDS Social [...] on filedocumented in this encounter Care Teams Operations Lead Relationship Specialty Start Date End Date Lupe Leal MD [address] [place] [id number] PCP - General Family Medicine 07/10/20 documented as of this encounter
== END 2024-11-14 12:33 | disposition home or self-care (01) ==
LOC: HO.HMGCX 12:32
PROVIDERS: PCP Family Medicine; Visit Provider Advanced Practice Midwife
DX: Z30.431 Encounter for routine checking of intrauterine contraceptive device (principal); N93.9 Abnormal uterine and vaginal bleeding, unspecified
CPT/HCPCS: 76830; 76856

== ENCOUNTER → 2024-11-14 12:35 | Outpatient (BNV) | payer SELFPAY | PROVIDERS: PCP Family Medicine; Visit Provider Radiology Vascular & Interventional Radiology | DX: Z97.5 Presence of (intrauterine) contraceptive device (principal) | CPT/HCPCS: 76830; 76856 ==

== ENCOUNTER 2025-01-08 19:27 | Emergency (ER) | payer MEDICAID, OTHER, SELFPAY ==
--- NOTE | ~2025-01-08 | XR_ITS ---
CLINICAL HISTORY: Left-sided chest pain. Exam: AP and oblique views of the left ribs and frontal view of the chest. Comparison: None. Findings: No rib fractures identified. No pneumothorax or pleural effusion. Lungs are clear. Cardiac silhouette is within normal limits. Impression: No rib fracture. This document has been electronically signed by: Steven Garza MD on 01/09/2025 00:11:18
--- NOTE | ~2025-01-08 | CT_ITS ---
CLINICAL HISTORY: Left flank pain CT abdomen and pelvis without contrast Comparison: CR - XR RIBS LT MIN 3V W CXR1V - 01/08/25 23:23 EDT US - US PELVIC AND TRANSVAGINAL - 11/14/24 12:40 EDT Findings: CT abdomen: No infiltrates within the lung bases. No acute bony lesions. No rib fractures. Small bilateral renal calculi. No hydronephrosis or perinephric stranding. Simple cysts within both kidneys measuring up to 12 mm in size. No perinephric stranding. No ureteral calculi. Unenhanced liver, spleen, pancreas, gallbladder, and adrenal glands are unremarkable. Moderate fluid distention of the stomach. Small bowel loops are of normal caliber. CT pelvis: [id number] amount of stool throughout the colon. No focal areas of colonic wall thickening are identified. No findings of appendicitis. No free fluid or free air. IUD is seen within the mid uterus. IMPRESSION: 1. Nonobstructing bilateral renal calculi. 2. Negative CT of the appendix. 3. Gvjwdmfv-ur-loqhx amount of stool throughout the colon without findings of obstruction. This document has been electronically signed by: Steven Garza MD on 01/09/2025 01:38:04
--- NOTE | 2025-01-08 19:34 | ED_ITS ---
HPI - General Adult General Chief complaint: Back Pain/Injury Stated complaint: pain from stomach to back (bloating also) Time Seen by Provider: 01/08/25 22:24 Source: patient, family (Son) and cuprous chloride helper (Israeli) Mode of arrival: ambulatory Limitations: no limitations History of Present Illness ED Provider: DR. Panda HPI narrative: A 44-year-old Israeli female came in for evaluation of left flank/left-sided abdominal pain for 8 days after she pulled a heavy stove at work, pain is localized to the left side, no dysuria, no frequency urination, no hematuria, no nausea, no vomiting, normal bowel movement this morning, passing flatus, never had intra-abdominal surgery. No recent travel, no lower extremity swelling or tenderness. Related Data Previous Rx's ?Medication ?Instructions ?Recorded cyclobenzaprine 10 mg tablet 10 mg PO TID PRN muscle spasm #14 01/08/25 tabs Allergies Allergy/AdvReac Type Severity Reaction Status Date / Time No Known Allergies Allergy Verified 01/08/25 19:39 Review of Systems 2 Review of Systems: All other systems are reviewed and are negative Constitutional: Reports as per HPI and Reports no additional constitutional complaints Eyes: Reports as per HPI and Reports no additional eye complaints Reports system reviewed and no additional complaints, except as documented Cardiovascular: Reports as per HPI and Reports no additional cardiovascular complaints Respiratory: Reports as per HPI and Reports no additional respiratory complaints Gastrointestinal: Reports as per HPI and Reports no additional gastrointestinal complaints Genitourinary: Reports no additional female genitourinary complaints Musculoskeletal: Reports no additional musculoskeletal complaints Skin/Breast: Reports system reviewed and no additional complaints, except as docu Psychiatric: Reports no additional psychiatric complaints Endocrine: Reports no additional endocrine complaints Hematologic/Lymphatic: Reports no additional hematologic/lymphatic complaints Allergic/Immunologic: Reports no additional allergic/immunologic complaints Reports system reviewed and no additional complaints, except as documented and Reports Abnormal speech present [facility] Social History Social History Advance Directives: No Advance Directives Information Provided: No Do you have a plan to hurt others: No Plan Physical Exam ED Vital Signs: Vital Signs - 24 hr 01/08/25 19:36 Temperature 98.0 F Pulse Rate 65 Respiratory Rate 16 Blood Pressure 113/73 Pulse Oximetry 100 Oxygen Delivery Method Room Air BMI result Body Mass Index 20.4 Vital signs have been reviewed and appear to be correct. Blood pressure elevated. Heart rate normal. Respiratory rate normal. Temperature normal. Oxygen saturation normal. Appearance: Alert. Oriented X3. No acute distress. Head: Normal external exam. Normocephalic. Atraumatic. No Woodall signs noted. No raccoon eyes noted Eyes: PERRLA. EOMI. Conjunctiva and sclera normal. Eyelids normal. ENT: TM's Normal. Pharynx normal. Uvula midline. Moist mucous membranes. No trismus noted. No drooling noted. No muffled voice noted. Neck: Normal inspection. Neck supple. FROM. No adenopathy. Thyroid Normal. No meningeal signs. No neck mass noted. CVS: Normal heart rate and rhythm. Heart sound normal. No murmurs noted. Pulses normal throughout. Respiratory: No respiratory distress. Painless inspiration. Breath sounds normal. No wheezes/rales/rhonchi noted. Diffuse left upper thoracic/flank area of tenderness, no step-off. No accessory muscle usage noted or decreased air movement noted. Abdomen: Soft and nontender. Bowel sounds normal in all 4 quadrants. No distention noted. No organomegaly noted. No visible injury noted. Back: No CVA tenderness. Full range of motion noted. Skin: Skin warm and dry. Normal skin color. Normal skin turgor. No rashes/lesions/lacerations noted. Extremities: No lower extremity edema. Extremities exhibit normal range of motion. Extremities nontender. Neuro: Oriented X 3. Cranial nerve exam: II-XII are grossly intact No motor deficit. No sensory deficit. Reflexes normal. Course Course Course Narrative: This is a rapid medical exam performed by Norma Cotto NP: Additional HPI, ROS, PE not included below will be deferred to primary provider. Patient is a 44-year-old Israeli speaking female presenting with complaint of left thoracic back pain for the past 8 days after moving something at work. Denies urinary symptoms. States pain wraps around side to abdomen and today developed bloating to abdomen. Has been using Aleve for pain. Plan: labs, UA Reevaluation(s) Reevaluation #1: Left muscular pain after pulled heavy stove at work, labs are unremarkable, urine is clear no indication for infection or obstructive uropathy. Physical exam is consistent with pulled muscle. Patient feels better with Toradol and Dilaudid IM. Time: 23:00 Medical Decision Making Differential Diagnosis Differential Diagnoses: The differential diagnosis associated with the presentation includes (UTI, pyelonephritis, obstructive kidney stone, muscular pain, rib fracture, ACS, pneumonia, pneumothorax.) Admission/Observation Consideration of admission/observation: Escalation of care including admission/observation considered Lab Data MDM Lab Attestation statement: I reviewed the patient's lab results. 01/08/25 19:45 01/08/25 19:45 Labs: Lab Results 01/08/25 Range/Units 19:45 WBC 8.7 (4.8-10.8) X10*3/uL RBC 4.62 (4.20-5.50) X10*6/uL Hgb 13.9 (12.0-16.0) g/dl Hct 40.4 (37.0-47.0) % MCV 87.4 (80.0-98.0) fL MCH 30.1 (27.0-33.0) pg MCHC 34.4 (31.0-35.0) g/dl RDW 13.7 (11.0-16.0) % Plt Count 237 (160-400) X10*3/uL MPV 9.0 L (9.4-12.3) fL Immature Gran % (Auto) 0.2 (0.0-0.4) % Neut % (Auto) 60.9 (45-73) % Lymph % (Auto) 27.7 (20-40) % Dale % (Auto) 8.9 (2-11) % Eos % (Auto) 1.7 (0-4) % Baso % (Auto) 0.6 (0-2) % Lymph # (Auto) 2.4 (1.2-4.9) X10*3/uL Dale # (Auto) 0.8 (0.1-1.2) X10*3/uL Eos # (Auto) 0.2 (0.0-0.4) X10*3/uL Baso # (Auto) 0.1 (0.0-0.2) X10*3/uL Abs Immat Gran (auto) 0.02 (0.00-0.03) X10*3/uL Absolute Neuts (auto) 5.3 (2.0-8.3) x10*3/uL Absolute Nucleated RBC 0.000 (0.0-0.012) X10*3/uL Nucleated RBC % (auto) 0.0 (0.0-0.2) /100WBC Sodium 141 (135-145) mmol/L Potassium 3.7 (3.3-5.1) mmol/L Chloride 108 (96-108) mmol/L Carbon Dioxide 23 (22-29) mmol/L Anion Gap 14 (12-20) BUN 22 H (9-16) mg/dL Creatinine 0.71 (0.5-1.4) mg/dL Estim Creat Clear Calc 76.2 Estimated GFR > 60 Random Glucose 87 (60-115) mg/dL Calcium 9.4 (8.4-10.2) mg/dL Total Bilirubin 0.2 (0.0-1.0) mg/dL AST 22 (5-31) U/L ALT 11 (0-31) U/L Alkaline Phosphatase 37 L (39-117) U/L Total Protein 6.9 (6.5-8.0) g/dL Albumin 4.3 (3.5-5.0) g/dL Independent Interpretation I performed an independent interpretation of an: Plain X-Ray (Left ribs/chest: No acute pathology.) Radiology Impression Discussion of test interpretation with radiology: I have reviewed the radiologist's reading. Discharge Plan Discharge Clinical Impression: Strain of lumbar region Patient Disposition: Home, Self-Care Instructions: Muscle Strain (ED) Additional Instructions: Apply heating pad to the tender area, rest, take a ibuprofen 200 mg tablet [id number] if needed for pain every 6 hours. Prescriptions: New cyclobenzaprine 10 mg tablet 10 mg PO TID PRN (Reason: muscle spasm) Qty: 14 0RF Referrals: Lupe Leal MD [Primary Care Provider] - Stand Alone Forms: Work/School Release Print Language: Israeli
[2025-01-08 19:36] VITALS: BP 113/73; PULSE 65; RESP 16; TEMP 36.7; O2SAT 100; BMI 20.4
[2025-01-08 19:49] LABS: MANUAL DIFF FLAG NO
[2025-01-08 19:56] LABS: Basophils Absolute Auto 0.1 X10*3/uL (0.0-0.2); Basophils Percent Auto 0.6 % (0-2); Eosinophils Absolute Auto 0.2 X10*3/uL (0.0-0.4); Eosinophils Percent Auto 1.7 % (0-4); Hematocrit 40.4 % (37.0-47.0); Hemoglobin 13.9 g/dl (12.0-16.0); Imm Gran Abs Auto 0.02 X10*3/uL (0.00-0.03); Imm Gran Pct Auto 0.2 % (0.0-0.4); Lymphocytes Absolute Auto 2.4 X10*3/uL (1.2-4.9); Lymphocytes Percent Auto 27.7 % (20-40); Mean Corpuscular HGB Conc 34.4 g/dl (31.0-35.0); Mean Corpuscular Hemoglobin 30.1 pg (27.0-33.0); Mean Corpuscular Volume 87.4 fL (80.0-98.0); Monocytes Absolute Auto 0.8 X10*3/uL (0.1-1.2); Monocytes Percent Auto 8.9 % (2-11); Neutrophils Absolute Auto 5.3 x10*3/uL (2.0-8.3); Neutrophils Percent Auto 60.9 % (45-73); Platelet Count 237 X10*3/uL (160-400); Red Blood Count 4.62 X10*6/uL (4.20-5.50); Red Cell Distribution Width 13.7 % (11.0-16.0); White Blood Count 8.7 X10*3/uL (4.8-10.8)
[2025-01-08 20:03] LABS: Alanine Aminotransferase 11 U/L (0-31); Albumin Level 4.3 g/dL (3.5-5.0); Alkaline Phosphatase 37 U/L (39-117); Anion Gap 14 (12-20); Aspartate Amino Transferase 22 U/L (5-31); Bilirubin Total 0.2 mg/dL (0.0-1.0); Blood Urea Nitrogen 22 mg/dL (9-16); Calcium 9.4 mg/dL (8.4-10.2); Carbon Dioxide 23 mmol/L (22-29); Chloride 108 mmol/L (96-108); Creatinine Clr Calc Pharmacy 76.2; Estimated Glomerular Filt Rate > 60; Glucose Random 87 mg/dL (60-115); Potassium 3.7 mmol/L (3.3-5.1); Sodium 141 mmol/L (135-145); Total Protein 6.9 g/dL (6.5-8.0)
--- OUTSIDE RECORDS SUMMARY | 2025-01-08 21:23 | XMS_ITS | Encounter Summary ---
Author Organization [employer] Address [address] [place] [address] Care Team Providers Care Narcotics And/Or Vice Detective Name Role Phone Lupe Leal MD Primary Care Provider [phone] Encounter Details Date Type Department Care Team [...] on filedocumented in this encounter Care Teams Narcotics And/Or Vice Detective Relationship Specialty Start Date End Date Lupe Leal MD [address] [place] [id number] PCP - General Family Medicine 07/10/20 documented as of this encounter
--- OUTSIDE RECORDS SUMMARY | 2025-01-08 21:23 | XMS_ITS | Clinical Summary ---
Author Organization [employer] Address [address] [place] [address] Care Team Providers Care Research [employer]oc Name Role Phone Lupe Leal MD Primary Care Provider [phone] Allergies No known active allergies Medications * This document contains information received from the source organization and may not represent a complete record from that organization. triamcinolone (Kenalog) 0.5 % ointment apply by topical route 2 times every day a thin layer to the affected area(s) 04/12/2022 Active nicotine polacrilex (Nicorette) 2 MG gum chew 1 piece of gum by oral route every 2 hours as needed and as directed 12/30/2020 Active Nicotine 21-14-7 MG/24HR kit Use 21 mg patch for 4 weeks, then 14 mg for 2 weeks and then 7 mg for 2 weeks (8 weeks total) 12/30/2020 Active meclizine (Antivert) 25 MG tablet take 1 tablet by oral route 3 times every day as needed 11/23/2021 Active aspirin-acetami nophen-caffeine (Excedrin Migraine) 250-250-65 MG tablet Take 2 tablet every 8 hours as needed for headache 11/23/2021 Active gabapentin (Neurontin) 300 MG capsuleIndicati ons:Anxiety Take 1 capsule (300 mg) by mouth at bedtime. 90 capsule 1 10/12/2023 Active Multiple Vitamin (multivitamin) tablet Take 1 tablet by mouth in the morning. 90 tablet 1 11/11/2023 Active magnesium, as gluconate, (Magonate) 500 (27 Mg) MG tablet Take 1 tablet (27 mg) by mouth 2 times daily. 180 tablet 1 11/11/2023 Active folic acid (Folvite) 400 MCG tablet Take 1 tablet (0.4 mg) by mouth in the morning. 90 tablet 1 11/11/2023 Active thiamine (Vitamin B-1) 500 MG tablet Take 1 tablet (500 mg) by mouth in the morning. 90 tablet 1 11/11/2023 Active hydrOXYzine pamoate (Vistaril) 25 MG capsuleIndicati ons:Anxiety TAKE ONE CAPSULE THREE TIMES DAILY NEEDED FOR ANXIETY 270 capsule 1 10/23/2024 Active QUEtiapine (SEROquel) 50 MG tablet Take 1 tablet (50 mg) by mouth at bedtime. 90 tablet 1 11/05/2024 Active topiramate (Topamax) 100 MG tablet Take 1 tablet (100 mg) by mouth Once per day. 90 tablet 1 12/03/2024 Active escitalopram (Lexapro) 10 MG tabletIndicatio ns:Anxiety Take 1 tablet (10 mg) by mouth Once per day. 30 tablet 2 12/07/2024 03/07/20 25 Active busPIRone (Buspar) 7.5 MG tablet Take 1 tablet (7.5 mg) by mouth 2 times daily. 60 tablet 2 12/10/2024 Active Active Problems Problem Noted Date Diagnosed Date [...] check levels. Anxiety 11/08/2022 Assessment & Plan (11/22/2024 2:13 PM EDT): PROGRESS NOTE: ID: Ese is a 44 y.o. choose cis-female with previous documented hx of Depression, Anxiety, and Grief services including [facility] Psychotherapy psychopharmacology who presents for Anxiety, Depression, and Prolonged Grief. During [facility] Consult Ese presenting with depressed mood, loss of interests/pleasure , sense of isolation/loneliness , change in appetite or weight reduce appetite, overeating, and patient reported it varies, psychomotor retardation, fatigue/loss of energy, difficulty concentrating, excessive worry/anxiety, difficulty controlling worry, anxiety/worry associated to restlessness and/or feeling keyed-up/On edge , easily fatigued , difficulty concentrating and/or mind going blank , irritability, and muscle tension , and sense of dread , and feeling overwhelm by the loss of her , irritability, intense yearning, preoccupation with the ; for a period of 18+ mo, for most or all symptoms in the context of and isolating, lack of motivation. With the use of director of mobile marketing Ajit ID #: [id number], Ese reported she has been using the coping mechanisms provided in previous consult. She reported improvement and it showed in decreased of previous PHQ9 score from 18-12 and KADEEM-7 from 21 to 16. She also verbalized has upcoming appt with therapist through [facility] on 11/29/24 and is aware of [facility] appt on 12/10/24. PLAN: (check all that apply) Behavioral Health Integration Plan Patient Self Plan Patient to utilize skills provided in intervention , Patient to reach out to [facility] team as needed, Patient to engage in OP therapy , and Patient to engage in Medication Management at [facility] SERV[facility] RIG OPERATOR. Assessment & Plan (03/02/2024 6:05 PM EDT): [...] with therapy. Try to reattempt contact with [place] [facility] [employer] and will f/up in 4-6 weeks [...] referral to therapy (may have to use electrical systems drafter) and prescriber. Failed 2 meds (SSRI, snri) [...] organization. Date Type Department Care Team Description 01/08/2025 Orders Only GENERIC EXTERNAL DATA DEPARTMENT Provider, Generic External Data 12/07/2024 Refill [facility] [address] [place] [address] Porfirio Payton MD 12/03/2024 Refill [facility] [address] [place] [address] WoodgateLaura, PAPETERIE TABLE ASSEMBLER Anxiety 12/03/2024 Refill [facility] [address] [place] [address] Lupe Leal MD 11/21/[address] [address] Lupe Leal MD Results 11/16/[address] [address] Marjorie Garcia RN Results 11/16/2024 Orders Only [address] [address] Manju Nichols CNM Encntr screen for infections w sexl mode of transmiss (Primary Dx) 11/08/2024 11:00 AM EDT Procedure Visit [facility] [address] [place] [address] Manju Nichols CNM Abnormal uterine bleeding (Primary Dx); Checking of intrauterine device; Cervical cancer screening; Encntr screen for infections w sexl mode of transmiss 11/08/2024 Orders Only [address] [address] Manju Nichols CNM 11/08/2024 Travel 11/05/2024 Refill [facility] [address] [facility] [place] [address] Lupe Leal MD 10/23/2024 Refill [facility] [address] [place] [address] Lupe Leal MD Anxiety from Last 3 Months Immunizations Name Administration [...] Answer Date Recorded Patient Health Questionnaire-9 Score 12 11/22/2024 Patient Health Questionnaire-9 Score 12 11/22/2024 Last PHQ-9: Questionnaire Data Not on file 0 11/22/2024 Housing Stability Answer Date Recorded What is your housing situation today? I have khari bee 09/12/[address] you li [...] Answer Date Recorded Patient Health Questionnaire-2 Score 4 11/22/2024 Internet Access Answer Date Recorded Internet Access [...] of 2 - PCV) 1999 COVID-19 Vaccine (2023-2 5 season) 2024 07/03/2021, 01/03/2021, 12/13/2020 Influenza Vaccine (#1) 2024 , 07/10/2020 Mammogram 05/19/2025 05/19/2023 Alcohol/Substance Use Screening 09/12/2025 09/12/2024 SDOH Screening 09/12/2025 09/12/2024 Tobacco Screening 10/03/2025 10/03/2024 Cervical Cancer Screening 11/08/2025 Family Planning (PISQ) 11/08/2025 11/08/2024 HPV/Cotest 11/08/2025 11/08/2024, 10/07/2020 Pap Smear 11/08/2025 11/08/2024, 10/07/2020 Depression Screening 11/22/2025 11/22/2024, 11/22/2024 Lipid Panel 07/15/2028 07/15/2023, 07/10/2020 Zoster Vaccines [...] Procedure Name Priority Date/Time Associated Diagnosis Comments COMPREHENSIVE METABOLIC PANEL Routine 01/08/2025 7:45 PM EDT CBC WITH AUTO DIFFERENTIAL Routine 01/08/2025 7:45 PM EDT US PELVIS TRANSVAGINAL Urgent 11/15/2024 5:22 PM EDT Abnormal uterine bleeding Checking of intrauterine device POCT , URINE Routine 11/08/2024 11:45 AM EDT Abnormal uterine bleeding PAP SMEAR Routine 11/08/2024 11:38 AM EDT Abnormal uterine bleeding Cervical cancer screening HPV DNA, LOW/HIGH RISK Routine 11/08/2024 11:38 AM EDT HEPATITIS C ANTIBODY Routine 07/15/2023 9:41 AM EST Encounter for health-related screening HIV 1/2 ANTIGEN/ANTIBODY, FOURTH GENERATION W/RFL Routine 07/15/2023 9:41 AM EST Encounter for health-related screening LIPID PANEL, STANDARD Routine 07/15/2023 9:41 AM EST Bulimia nervosa, purging type BI MAMMOGRAM SCREENING TOMOSYNTHESIS BILATERAL Routine 05/19/2023 9:30 AM EDT from Last 3 Months or Most Recently Relevant to Health Maintenance Results * (ABNORMAL) CBC auto differential (01/08/2025 7:45 PM EDT) White Blood Count 8.7 4.8 - 10.8 X10*3/uL [facility] Red Blood Count 4.62 4.20 - 5.50 X10*6/uL [facility] Hemoglobin 13.9 12.0 - 16.0 g/dl [facility] Hematocrit 40.4 37.0 - 47.0 % [facility] Mean Corpuscular Volume 87.4 80.0 - 98.0 fL [facility] Mean Corpuscular Hemoglobin 30.1 27.0 - 33.0 pg [facility] Mean Corpuscular HGB Conc 34.4 31.0 - 35.0 g/dl [facility] Red Cell Distribution Width 13.7 11.0 - 16.0 % [facility] Platelet Count 237 160 - 400 X10*3/uL [facility] Mean Platelet Volume 9.0(L) 9.4 - 12.3 fL [facility] Neutrophils Percent Auto 60.9 45 - 73 % [facility] Imm Gran Pct Auto 0.2 0.0 - 0.4 % [facility] Lymphocytes Percent Auto 27.7 20 - 40 % [facility] Monocytes Percent Auto 8.9 2 - 11 % [facility] Eosinophils Percent Auto 1.7 0 - 4 % [facility] Basophils Percent Auto 0.6 0 - 2 % [facility] NRBC Pct Auto 0.0 0.0 - 0.2 /100WBC [facility] Neutrophils Absolute Auto 5.3 2.0 - 8.3 x10*3/uL [facility] Imm Gran Abs Auto 0.02 0.00 - 0.03 X10*3/uL [facility] Lymphocytes Absolute Auto 2.4 1.2 - 4.9 X10*3/uL [facility] Monocytes Absolute Auto 0.8 0.1 - 1.2 X10*3/uL [facility] Eosinophils Absolute Auto 0.2 0.0 - 0.4 X10*3/uL [facility] Basophils Absolute Auto 0.1 0.0 - 0.2 X10*3/uL [facility] NRBC Abs Auto 0.000 0.0 - 0.012 X10*3/uL [facility] 01/08/2025 7:45 PM EDT 01/08/2025 7:47 PM EDT us Generic External Data Provider LAB BLOOD ORDERAB LES Final Result [facility] [address] [place] [phone] * (ABNORMAL) Comprehensive Metabolic Panel (01/08/2025 7:45 PM EDT) Sodium 141 135 - 145 mmol/L [facility] Potassium 3.7 3.3 - 5.1 mmol/L [facility] Chloride 108 96 - 108 mmol/L [facility] Carbon Dioxide 23 22 - 29 mmol/L [facility] Anion Gap 14 12 - 20 [facility] Urea Nitrogen (BUN) 22(H) 9 - 16 mg/dL [facility] Creatinine, Serum 0.71 0.5 - 1.4 mg/dL [facility] Creatinine Clr Calc Pharmacy 76.2 [facility] Comment:Provided height and weight: 154.94 cm,49 kg.eGFR (calculated from the MDRD study equation) and eCrCl(calculated from the Cockcroft-Gault equation) are based ondifferent parameters and may not yield comparable results.If eCrCl result is absurd, please check patient'sheight/weight. Estimated Glomerular Filt Rate >60 [facility] Comment:Chronic Kidney Disea se: Estimated GFR < 60 mL/min/1.06j6Yekviz Kidney Disease: Estimated GFR < 15 mL/min/1.73m2 Glucose 87 60 - 115 mg/dL [facility] Calcium 9.4 8.4 - 10.2 mg/dL [facility] Bilirubin, Total 0.2 0.0 - 1.0 mg/dL [facility] Aspartate Amino Transferase 22 5 - 31 U/L [facility] Alanine Aminotransferase 11 0 - 31 U/L [facility] Total Protein 6.9 6.5 - 8.0 g/dL [facility] Albumin Level 4.3 3.5 - 5.0 g/dL [facility] Alkaline Phosphatase 37(L) 39 - 117 U/L [facility] 01/08/2025 7:45 PM EDT 01/08/2025 7:47 PM EDT us Generic External Data Provider LAB BLOOD ORDERAB LES Final Result [facility] [address] [place] [phone] [phone] * US Pelvis Transvaginal (11/15/2024 5:22 PM EDT) Anatomical Region Laterality Modality Pelvis Ultrasound 11/15/2024 5:22 PM EDT Narrative 11/15/2024 5:25 PM EDT ? [facility] ?[address] ? [place] [address] ? Ultrasound Report ? Signed ? Patient: Jessi,Ese ?MR#: [id number] ?? 53 ? : 1980 ?Acct:[id number] ? Age/Sex: 44 / F ?ADM Date: 03/19/25 ? Loc: HO.HMGCX ? Attending Dr: Manju Nichols CNM ? Ordering Physician: MANJU NICHOLS CNM ?? Date of Service: 11/14/24 ?? Procedure(s): US pelvic and transvaginal ?? Accession Number(s): [id number] ? cc: MANJU NICHOLS CNM; Lupe Leal MD ? CLINICAL HISTORY: bleeding with IUD ? US pelvis transvaginal ? Comparison: None ? Findings: ?? Transvaginal scanning performed. ? The uterus is 7.9 cm length. ?? Normal myometrium. ?? Well-positioned IUD limits interpretation of the endometrium. ? Right ovary 1.3 x 1.1 x 1.5 cm. 7 mm follicle noted. ?? Left ovary 2.9 x 1.5 x 2.0 cm. 14 mm simple cyst noted ?? Normal color Doppler of both ovaries. ? Trace free fluid. ? IMPRESSION: ?? Well-positioned IUD. ?? Trace free fluid in the cul-de-sac, likely physiologic. ? This document has been electronically signed by: Chidi Herrera MD on ?? 11/15/2024 17:22:43 ? Dictated By: ?Chidi Hrerera MD ? Signed By: ?<Electronically signed by Chidi Herrera MD in OV> ? 11/15/24 1723 ? DD/ 1722 ? TD/TT: 11/15/24 1722 ? Horse Racetrack Manager: ? Procedure Note Chuckie, Image - 11/15/2024 [facility] [address] [place] [address] [place] [address] Ultrasound Report Signed Patient: Yoana Bowen#: [id number] 53 : 1980Acct:[id number] Age/Sex: 44 / FADM Date: 11/14/24 Loc: .HMGCX Attending Dr: Manju Nichols CNM Ordering Physician: MANJU NICHOLS CNM Date of Service: 11/14/24 Procedure(s): US pelvic and transvaginal Accession Number(s): [id number] cc: MANJU NICHOLS CNM; Lupe Leal MD CLINICAL HISTORY: bleeding with IUD US pelvis transvaginal Comparison: None Findings: Transvaginal scanning performed. The uterus is 7.9 cm length. Normal myometrium. Well-positioned IUD limits interpretation of the endometrium. Right ovary 1.3 x 1.1 x 1.5 cm. 7 mm follicle noted. Left ovary 2.9 x 1.5 x 2.0 cm. 14 mm simple cyst noted Normal color Doppler of both ovaries. Trace free fluid. IMPRESSION: Well-positioned IUD. Trace free fluid in the cul-de-sac, likely physiologic. This document has been electronically signed by: Chidi Herrera MD on 11/15/2024 17:22:43 Dictated By: Chidi Herrera MD Signed By: <Electronically signed by Chidi Herrera MD in OV> 11/15/241722 DD/ 21 TD/TT: 11/15/241721 Horse Racetrack Manager: Manju Nichols CNM IMG US PROCEDURES Final R esult * POCT , urine manually resulted (11/08/2024 11:45 AM EDT) Preg Test, Ur Negative Negative, Indeterminate, None Detected, Invalid, Specimen unsatisfactory for evaluation, Weakly Positive QC Media Lot # Comment:[id number] Lot# Expiration Date Comment:06/20/2025 Urine 11/08/2024 11:4 5 AM EDT Manju Nichols CNM POINT OF CARE TEST ENTER/ EDIT ORDERABLES Final Result * (ABNORMAL) HPV DNA, Low/High Risk (11/08/2024 11:38 AM EDT) HPV High Risk Positive(A) Negative [facility] HPV Genotype 16 Negative Negative [facility] HPV Genotype 18 Negative Negative [facility] Comment:HPV testing performe d at [facility] (CLIA#[id number]), [address] [place] [address].Testing for HPV was performed using the [employer]system. The presence of HPV in the female genital tract isassociated with a number of diseases, including cervicalcarcinoma. The HPV DNA high risk pool tests for HPV 31, 33,35, 39, 45, 51, 52, 56, 58, 59, 66 and 68. The testing forHPV 16 and 18 genotypes has also been performed. A positiveresult indicates detection of nucleic acid sequences fromone or more subtypes, whereas a negative result indicatessuch sequences were not detected. 11/08/2024 11:3 8 AM EDT 11/09/2024 7:30 AM EDT us Manju Nichols CNM LAB BLOOD ORDERABLES Isabel marixa Result [facility] [address] [place] [phone] * Pap Smear (11/08/2024 11:38 AM EDT) Swab Cervix uteri structure / Unknown 11/08/2024 11:38 AM EDT 11/09/2024 7:30 AM EDT Narrative [facility] - 11/19/2024 2:42 PM EDT ----- ------- Name: Ese Bowen ? Age/Sex: 44/F ? : 1980 Unit#: [id number] ?? Attend Dr: MANJU NICHOLS CNM ?Re11/08/24 ?Status: DEP REF ? [facility] ? Disch: ? ----- ------- SPEC : [id number] ? RECD: 11/09/24 ? STATUS: ??SOUT ? REQ NUM: [id number] ? RADHIKA: 11/08/24 ? SUBM DR: MANJU NICHOLS CNM ? ENTERED: ??11/09/24 ?SP TYPE: Pap Smr ?OTHR : ? ORDERED: ??Pap Smear ? Interpretation ?? ABNORMAL PAP TEST. ?? Satisfactory for evaluation, with mildly dysplastic squamous cells / HPV cytopathic ?? change (LANCE 1; low grade squamous intraepithelial lesion). ?? No endocervical cells seen. ?? Coccobacilli consistent with shift in vaginal char. ? HPV High Risk: ??Positive ? HPV Genotyping 16: ??Negative ?? HPV Genotyping 18: ??Negative ?Clinical Information LMP: 10/26/2024 Previous PAP test: Unknown date/findings Other history: IUD ? Material Received ?? Cervix ----- ------- Signed (signature on file) Geoffrey Benitez MD 11/19/24 1442 ? ----- ------- ? END OF REPORT ? us Manju Nichols [facility] CYTOLOGY ORDERABLES F inal Result Performing Organization Address [facility]/ZIP Co de Phone Number [facility] [address] [place], [place] [phone] * Hepatitis C Ab (07/15/2023 9:41 AM EST) [facility] Hepatitis C Antibody Nonreactive Nonreactive [facility] Comment:Antibodies to HCV no t detected; does not exclude early acuteHCV infection. Blood 07/15/2023 9:41 AM EST 07/15/2023 2:22 PM EST us Lupe Leal MD LAB BLOOD ORDERABLES Final Re sult Performing Organization Address [facility]/ZIP Co de Phone Number [facility] [address] [place], [place] [phone] * HIV-1/2 Antigen and Antibodies, Fourth Generation, with Reflexes (07/15/2023 9:41 AM EST) HIV AB/AG Nonreactive Nonreactive [facility] Comment:HIV-1 p24 Ag and/or HIV-1/HIV-2 Ab not detected.A test result that is nonreactive does not exclude thepossibility of exposure to or infection with HIV-1 and/orHIV-2. Nonreactive results in this assay for individualswith prior exposure to HIV-1 and/or HIV-2 may be due toantigen and antibody levels that are below the limit ofdetection of this assay.The [employer] HIV Ag/Ab Combo assay result andsupplemental assay results should be interpreted inconjunction with the patient's clinical presentation,history and other laboratory results. If the results areinconsistent with clinical evidence, additional testing issuggested to confirm the result. Blood Venous blood specimen / Unknown 07/15/2023 9:41 AM EST 07/15/2023 2:22 PM EST us Lupe Leal MD LAB BLOOD ORDERABLES Final Re sult [facility] [address], [place] [phone] * (ABNORMAL) Lipid Panel, Standard (07/15/2023 9:41 AM EST) Triglycerides 82 <150 mg/dL [facility] Comment:Desirable Triglyceri de: less than 150 mg/dLBorderline High Triglyceride 150-199 mg/dLHigh Triglyceride: 200-499 mg/dLVery High Triglyceride: greater than or equal to 5OO mg/dL Cholesterol 200(H) <200 mg/dL [facility] Comment:Desirable Cholestero l: less than 200 mg/dLBorderline High Cholesterol: 200-239 mg/dLHigh Cholesterol: greater than 239 mg/dL LDL Cholesterol Calculated 117(H) <100 mg/dL [facility] Comment:Desirable LDL: less than 100 mg/dLNear Optimal/Above Optimal LDL: 110- 129 mg/dLBorderline High LDL: 130-159 mg/dLHigh LDL: 160-189 mg/dLVery High LDL: greater than or equal to 190 mg/dL HDL Cholesterol 67 >40 mg/dL [facility] Comment:Desirable HDL: great er than 40 mg/dL Note: This HDL assay may give artificially low results in patients with liver disease. Blood Venous blood specimen / Unknown 07/15/2023 9:41 AM EST 07/15/2023 2:26 PM EST us Lupe Leal MD LAB BLOOD ORDERABLES Final Re sult [facility] [address] [place] [phone] * BI Mammogram Screening Tomosynthesis Bilateral (05/19/2023 9:30 AM EDT) Anatomical Region Laterality Modality Breast Bilateral Mammography 05/19/2023 9:30 AM EDT Narrative 06/07/2023 1:10 PM EDT ? [facility] ? [address] ?[place] [address] ? Mammography Report ? Signed ? Patient: Ese Bowen ?MR#: [id number] ?? 53 ? : 1980 ?Acct:[id number] ? Age/Sex: 42 / F ?ADM Date: // ? Loc: HO.MAMMO ? Attending Dr: Lupe Leal MD ? Ordering Physician: Lupe Leal MD ?Results: 1Nega ?? tive ? Date of Service: 05/19/ ?Follow Up: 1 Year From Orig ?? inal Mammogram ? Procedure(s): MM tomosynthesis screening BI ?? Accession Number(s): [id number] ? cc: Lupe Leal MD ? EXAMINATION: [...] by Analisa Vaughn MD in OV> ? 10/06/20 1306 ? DD/ 9 ? TD/TT: ? Horse Racetrack Manager: ? Procedure Note Diego Noguera - 06/07/2023 [facility] [address] [place] [address] [place] [address] Mammography Report Signed Patient: Ese Bowen#: [id number] 53 : 1980Acct:[id number] Age/Sex: 42 / FADM Date: 05/19/23 Loc: HO.MAMMO Attending Dr: Lupe Leal MD Ordering Physician: Lupe Leal MDResults: 1Nega tive Date of Service: 05/19/23Follow Up: 1 Year From Orig inal Mammogram Procedure(s): MM tomosynthesis screening BI Accession Number(s): [id number] cc: Lupe Leal MD EXAMINATION: MM SCREENING [...] in OV> 06/07/23 1306 DD/ 0930 TD/TT: Horse Racetrack Manager: Lupe Leal MD IMG BI PROCEDURES Final Resul t from Last 3 Months or Most Recently Relevant to Health Maintenance Insurance [employer] FULL Care Teams [employer] Relationship Specialty Start Date End Date Lupe Leal MD [address] [place] [phone] PCP - General Family Medicine 07/10/20
--- OUTSIDE RECORDS SUMMARY | 2025-01-08 21:23 | XMS_ITS | Encounter Summary ---
Author Organization [employer] Address [address] [place] [address] Care Team Providers Care Granulator Tender Name Role Phone Lupe Leal MD Primary Care Provider [phone] Reason for Visit * Reason Onset Date Comments Nurse Triage 09/10/2024 Encounter Details Date Type Department Care Team ([facility] st Contact Info) Description 09/10/2024 Telephone [facility] [address] [place] [address] Lupe Leal MD [address] [place] [address] Nurse Triage Social History Tobacco Use Types [...] 09/10/2024 12:58 PM EST Triage call with [facility] [place] liquor runner [place] [id number] Pt reports it has been a year since committed suicide. Pt is having increased pressure and anxiety. Pt is at work at time of call and reports is able to go to work and finds it helpful. Pt had been speaking with a psychologist on line who speaks Kosovan but, found that it wasn't good for me and ended this help. Pt has since found a Kosovan speaking psychologist that would be inperson but, [...] prescribed. ASK apt with SHADY Lau in [facility] 09/12/24 @1115am. Pt is advised [...] acuity questions The caller accepted this outcome. Monitoring Analyst needed documented in this encounter Plan of Treatment Not on file documented as of this encounter Visit Diagnoses Not on filedocumented in this encounter Additional Health Concerns Assessment Noted Time PHQ-9 Depression Total Score: 16 023 10:38 AM EDT documented as of this encounter Care Teams Granulator Tender Relationship Specialty Start Date End Date Lupe Leal MD [address] [place] [address] PCP - General Family Medicine 07/10/20 documented as of this encounter
--- OUTSIDE RECORDS SUMMARY | 2025-01-08 21:23 | XMS_ITS | Encounter Summary ---
Author Organization [employer] Address [address] [place] [address] Care Team Providers Care Glass Setter Name Role Phone Lupe Leal MD Primary Care Provider [phone] Encounter Details Date Type Department Care Team [...] on filedocumented in this encounter Care Teams Glass Setter Relationship Specialty Start Date End Date Lupe Leal MD [address] [place] [address] PCP - General Family Medicine 07/10/20 documented as of this encounter
--- OUTSIDE RECORDS SUMMARY | 2025-01-08 21:23 | XMS_ITS | Encounter Summary ---
Author Organization [employer] Address [address] [place] [address] Care Team Providers Care Chimney Repairer Name Role Phone Lupe Leal MD Primary Care Provider [phone] Encounter Details Date Type Department Care Team [...] on filedocumented in this encounter Care Teams Chimney Repairer Relationship Specialty Start Date End Date Lupe Leal MD [address] [place] [id number] PCP - General Family Medicine 07/10/20 documented as of this encounter
--- OUTSIDE RECORDS SUMMARY | 2025-01-08 21:23 | XMS_ITS | Encounter Summary ---
Author Organization [employer] Address [address] 7[address] [place] [address] Care Team Providers Care Guest Relations Agent Name Role Phone Lupe Leal MD Primary Care Provider [phone] Reason for Visit * Reason Onset Date Comments Med Refill 04/06/2024 Encounter Details Date Type Department Care Team (Late st Contact Info) Description 04/06/2024 Telephone [facility] MEDICINE [address] [place] [address] Lupe Leal MD [address] [place] [address] Med Refill Social History Tobacco Use Types [...] patient requesting med refill for BP however property underwriter does not see medication on chart documented in this encounter Plan of Treatment Not on file documented as of this encounter Visit Diagnoses Not on filedocumented in this encounter Additional Health Concerns Assessment Noted Time PHQ-9 Depression Total Score: 16 023 10:38 AM EDT documented as of this encounter Care Teams Guest Relations Agent Relationship Specialty Start Date End Date Lupe Leal MD [address] [place] [address] PCP - General Family Medicine 07/10/20 documented as of this encounter
--- OUTSIDE RECORDS SUMMARY | 2025-01-08 21:23 | XMS_ITS | Encounter Summary ---
Author Organization [employer] Address [address] [place] [address] Care Team Providers Care Tray Line Supervisor Name Role Phone Lupe Leal MD Primary Care Provider [phone] Reason for Visit * Reason Onset Date Comments Nurse Triage 10/03/2024 Encounter Details Date Type Department Care Team ([facility] st Contact Info) Description 10/03/2024 Telephone [facility] CH[facility] MED & PEDS [address] [place] [address] Lupe Leal MD [address] [place] [address] Nurse Triage Social History Tobacco Use Types [...] 10/03/2024 11:03 AM EST Triage call with [facility] [address] [place] [id number]. Pt reports having some increased anxiety for [...] . Pt is offered ASK apt in [facility] today at [facility] and agrees with [...] documented as of this encounter Care Teams Tray Line Supervisor Relationship Specialty Start Date End Date Lupe Leal MD [address] [place] [address] PCP - General Family Medicine 07/10/20 documented as of this encounter
--- NOTE | 2025-01-08 22:38 | ECG_ITS ---
Test Reason : BACK PAIN Blood Pressure : */* mmHG Vent. Rate : 53 BPM Atrial Rate : 53 BPM P-R Int : 176 ms QRS Dur : 88 ms QT Int : 412 ms P-R-T Axes : 42 60 42 degrees QTcB Int : 386 ms Sinus bradycardia Otherwise normal ECG No previous ECGs available Referred By: Silverio Panda Electronically Signed By: EDGAR MOLINA MD
[2025-01-08 22:58] LABS: Appearance Urine Clear; Color Urine Yellow; Glucose Urine UA Negative (Negative); Leukocyte Esterase Urine Negative (Negative); Nitrite Urine Negative (Negative); PH 6.5 (5.0-9.0); UMIC TRIGGER UACC YES; Urine Blood Trace (Negative); Urine Ketones Negative (Negative); Urine Protein Negative (Neg-Trace)
[2025-01-08 23:03] VITALS: BP 117/42; PULSE 54; RESP 16; TEMP 36.8; O2SAT 100
[2025-01-08] MEDS: HYDROmorphone HCl 0.5 MG/0.5 ML SYRINGE IM (23:05)
[2025-01-08] MEDS: Ketorolac Tromethamine 15 MG/ML VIAL IM (23:05)
[2025-01-08 23:35] LABS: Troponin-I High Sensitivity < 2.7 ng/L (<3.5-17.0)
[2025-01-08 23:57] LABS: Bacteria Urine None Seen (None Seen); Hyaline Casts Urine 0-2 /LPF (0-2); Squamous Epithelial Cell Urine 0-2 /HPF (0-2); WBC Urine 0-5 /HPF (0-5)
[2025-01-09 02:28] VITALS: BP 100/60; PULSE 52; RESP 16; TEMP 36.7; O2SAT 100
[2025-01-09] MEDS: oxyCODONE HCl Immed Release 5 MG TABLET PO (04:02)
[2025-01-09 04:07] VITALS: BP 100/60; PULSE 52; RESP 16; TEMP 36.7; O2SAT 100
== END 2025-01-09 04:08 | disposition home or self-care (01) ==
PROVIDERS: Registered Nurse Emergency; Emergency Provider Emergency Medicine; PCP Family Medicine
DX: S39.012A Strain of muscle, fascia and tendon of lower back, initial encounter (principal); X50.0XXA Overexertion from strenuous movement or load, initial encounter; Y93.89 Activity, other specified; Y92.9 Unspecified place or not applicable; Y99.0 Civilian activity done for income or pay
CPT/HCPCS: 36415; 71101; 74176; 80053; 81001; 81003; 84484; 85025; 93005; 96372; 99285; J1171; J1885

== ENCOUNTER → 2025-01-08 22:37 | Outpatient (BNV) | payer MEDICAID, SELFPAY | PROVIDERS: Emergency Provider Emergency Medicine; PCP Family Medicine; Visit Provider Radiology Diagnostic Radiology | DX: R07.89 Other chest pain (principal) | CPT/HCPCS: 71101 ==

== ENCOUNTER → 2025-01-08 22:38 | Outpatient (BNV) | payer MEDICAID, SELFPAY | PROVIDERS: Emergency Provider Emergency Medicine; PCP Family Medicine; Visit Provider Internal Medicine Cardiovascular Disease | DX: R00.1 Bradycardia, unspecified (principal) | CPT/HCPCS: 93010 ==

== ENCOUNTER → 2025-01-09 00:11 | Outpatient (BNV) | payer MEDICAID, SELFPAY | PROVIDERS: Emergency Provider Emergency Medicine; PCP Family Medicine; Visit Provider Radiology Diagnostic Radiology | DX: N20.0 Calculus of kidney (principal); K56.41 Fecal impaction | CPT/HCPCS: 74176 ==

== ENCOUNTER 2025-07-23 14:00 | Outpatient (REF) | payer MEDICAID, OTHER, SELFPAY ==
--- OUTSIDE RECORDS SUMMARY | 2025-07-23 14:00 | XMS_ITS | Encounter Summary ---
Author Organization [employer] Address [address] 7[address] [place] [address] Care Team Providers Care Filler In Name Role Phone Lupe Leal MD Primary Care Provider [phone] Reason for Visit * Reason Comments f/u Encounter Details Date Type Department Care Team ([facility] st Contact Info) Description 07/23/2025 2:00 PM EST Office Visit [facility] MEDICINE [address] [place], [place] [phone] Chantel Feliz, [facility] [address] [place], [place] [phone] Checking of intrauterine device (Primary Dx); Vaginal discharge Social History Tobacco Use Types Packs/Day Years [...] Answer Date Recorded Patient Health Questionnaire-2 Score 2 07/23/2025 Internet Access Answer Date Recorded Internet Access [...] Sign Reading Time Taken Comments Blood Pressure 110/78 07/23/2025 2:22 PM EST Pulse 76 07/23/2025 2:22 PM EST Temperature 36.6 C (97.9 F) 07/23/2025 2:22 PM EST Respiratory Rate 14 07/23/2025 2:22 PM EST Oxygen Saturation 98% 07/23/2025 2:22 PM EST Inhaled Oxygen Concentration - - Weight 50.8 kg (112 lb) 07/23/2025 2:22 PM EST Height - - Body Mass Index 21.16 05/24/2025 1:09 PM EDT documented in this encounter Functional Status * Over the past 2 weeks, how often have you been bothered by any of the following problems? Question Answer Date of Assessment Author Patient Health Questionnaire-2 Score 2 06/30 2:08 PM EST Joseline Cassidy MA * Little interest or pleasure in doing things Answer Date of Assessment Author Several days 07/23/2025 2:08 PM EST Joseline Cassidy MA * Feeling down, depressed, or hopeless Answer Date of Assessment Author Several days 07/23/2025 2:08 PM EST Joseline Cassidy MA * Trouble falling or staying asleep, or sleeping too much Answer Date of Assessment Author Several days 07/23/2025 2:08 PM Joseline Dailey MA * Feeling tired or having little energy Answer Date of Assessment Author Nearly every day 07/23/2025 2:08 PM Joseline Dailey MA * Poor appetite or overeating Answer Date of Assessment Author Nearly every day 07/23/2025 2:08 PM Joseline Dailey MA * Feeling bad about yourself - or that you are a failure or have let yourself or your family down Answer Date of Assessment Author More than half the days 07/23/2025 2:08 PM Joseline Braga MA * Trouble concentrating on things, such as reading the newspaper or watching television Answer Date of Assessment Author More than half the days 07/23/2025 2:08 PM Joseline Braga MA * Thoughts that you would be better off or hurting yourself in some way Answer Date of Assessment Author Several days 07/23/2025 2:08 PM Joseline Dailey MA documented as of this encounter Progress Notes * Chantel Feliz, KARSTEN - 07/23/2025 2:00 PM EST Subjective Patient ID: Ese Bowen is a 44 y.o. female who presents for IUD replacement. Progestin IUD replaced at last visit with me, using for menstrual suppression. LSIL HPV pos, neg 16/18 pap 10/2024. Cotesting due 10/2025. Notes some vaginal irritation and discharge since IUD insertion. Otherwise feels well. No pain/bleeding with sex. Waited at least a week to have sex after insertion. Amenorrheic. Pelvic exam by HARPREET Ding, under my supervision. Review of Systems Constitutional: Negative for chills and fever. Genitourinary: Positive for vaginal discharge. Negative for dyspareunia, dysuria, menstrual problem, pelvic pain, vaginal bleeding and vaginal pain. Objective BP 110/78 (BP Location: Left arm, Patient Position: Sitting, BP Cuff Size: Adult) Pulse 76 Temp97.9 ??F (36.6 ??C) (Oral) Resp 14 Wt 112 lb (50.8 kg) LMP 06/10/2025 (Approximate) SpO2 98% BMI 21.16 kg/m?? Physical Exam Entry Rep present: declines machine assembler. Constitutional: Appearance: Normal appearance. Genitourinary: General: Normal vulva. Labia: Right: No rash, tenderness, lesion or injury. Left: No rash, tenderness, lesion or injury. Vagina: No signs of injury and foreign body. Vaginal discharge present. No erythema, tenderness, bleeding or lesions. Cervix: No cervical motion tenderness, discharge, friability, lesion, erythema, cervical bleeding or eversion. Comments: IUD strings noted. Milky discharge noted. Erythema of introitus. Neurological: Mental Status: She is alert. Psychiatric: Mood and Affect: Mood normal. Behavior: Behavior normal. Assessment/Plan Diagnoses and all orders for this visit: Checking of intrauterine device Report heavy bleeding, fever, chills or abdominal pain. Remove/replace IUD by 5 y from insertion. May remove any time before then if desired. Vaginal discharge - POCT fern test, vaginal fluid manually resulted - Bacterial Vaginosis, Yeast and Trich; Future Bacterial vaginosis noted. Prefers vaginal treatment. For MetroGel as prescribed. Report worsening/persistent symptoms. If yeast on bacterial vaginosis swab, will treat as well. Other orders - metroNIDAZOLE (Metrogel) 0.75 % vaginal gel; Insert 1 Application. into the vagina at bedtime for5 doses. One applicator in the vagina every night x 5 nights documented in this encounter Plan of Treatment Upcoming Encounters Date Type Department Care Team (Late st Contact Info) Description 07/30/2025 10:15 AM EST Office Visit [facility] ADULT DENTAL [address] [place] [address] Fabiola John Scheduled Orders Name Type Priority Associated Diagnoses Orde r Schedule Bacterial Vaginosis, Yeast and Trich Microbiology Routine Vaginal discharge Expected: 07/23/2025 (Approximate), Expires: 07/23/2026 documented as of this encounter Procedures Procedure Name Priority Date/Time Associated Diagnosis Comments POCT WET MOUNT/ISRAEL Routine 07/23/2025 2: 11 PM EST Vaginal discharge documented in this encounter Results * POCT fern test, vaginal fluid manually resulted (07/23/2025 2:11 PM EST) ISRAEL Prep Positive Comment:pH 5.5, pos whiff, p os clue, neg trich, neg yeastg Vaginal Fluid Vaginal structure / Unknown 07/23/2025 2:11 PM EST Chantel TORRES POINT OF CARE TEST ENTER/ EDIT ORDERABLES Final Result documented in this encounter Visit Diagnoses Diagnosis Checking of intrauterine device- Primary Vaginal discharge Leukorrhea, not specified as infective documented in this encounter Additional Health Concerns Assessment Noted Time PHQ-9 Depression Total Score: 12 025 1:57 PM EDT documented as of this encounter Care Teams Filler In Relationship Specialty Start Date End Date Lupe Leal MD [address] [place] [id number] PCP - General Family Medicine 07/10/20 documented as of this encounter
--- OUTSIDE RECORDS SUMMARY | 2025-07-23 19:28 | XMS_ITS | Encounter Summary ---
Author Organization [employer] Address [address] [place] [address] Care Team Providers Care Golf Course Assistant Name Role Phone Lupe Leal MD Primary Care Provider [phone] Reason for Visit * Reason Onset Date Comments Nurse Triage 09/10/2024 Encounter Details Date Type Department Care Team ([facility] st Contact Info) Description 09/10/2024 Telephone [facility] CHC MED & PEDS [address] [place] [address] Lupe Leal MD [address] [place] [address] Nurse Triage Social History Tobacco Use Types [...] 09/10/2024 12:58 PM EST Triage call with [facility] [place] [id number] [place] Pt reports it has been a year since committed suicide. Pt is having increased pressure and anxiety. Pt is at work at time of call and reports is able to go to work and finds it helpful. Pt had been speaking with a psychologist on line who speaks Tajik but, found that it wasn't good for me and ended this help. Pt has since found a Tajik speaking psychologist that would be inperson but, [...] prescribed. ASK apt with SHADY Lau in [facility] 09/12/24 @1115am. Pt is advised that [...] acuity questions The caller accepted this outcome. Acid Purification Equipment Operator needed documented in this encounter Plan of Treatment Upcoming Encounters Date Type Department Care Team (Late st Contact Info) Description 07/30/2025 10:15 AM EST Office Visit [facility] [address] [place] [address] Fabiola John documented as of this encounter Visit Diagnoses Not on filedocumented in this encounter Additional Health Concerns Assessment Noted Time PHQ-9 Depression Total Score: 16 023 10:38 AM EDT documented as of this encounter Care Teams Golf Course Assistant Relationship Specialty Start Date End Date Lupe Leal MD [address] [place] [address] PCP - General Family Medicine 07/10/20 documented as of this encounter
--- OUTSIDE RECORDS SUMMARY | 2025-07-23 19:28 | XMS_ITS | Encounter Summary ---
Author Organization [employer] Address [address] [place] [address] Care Team Providers Care Rider Ticket Worker Name Role Phone Lupe Leal MD Primary Care Provider [phone] Reason for Visit * Reason Onset Date Comments Nurse Triage 10/03/2024 Encounter Details Date Type Department Care Team ([facility] st Contact Info) Description 10/03/2024 Telephone [facility] CHC MED & PEDS [address] [place] [address] Lupe Leal MD [address] [place] [address] Nurse Triage Social History Tobacco Use Types [...] AM EDT documented as of this encounter Functional Status * Over the last 2 weeks, how often have you been bothered by any of the following problems? Question Answer Date of Assessment Author Feeling nervous, anxious, or on edge 3 10/03/2024 3:47 PM EST Bernardo Hargrove MA Not being able to stop or control worrying 2 10/03/2024 3:47 PM EST Bernardo Hargrove MA Worrying too much about different things 3 10/03/2024 3:47 PM EST Bernardo Hargrove MA Trouble relaxing 3 10/03/2024 3:47 PM EST D Deisy Fuentes MA Being so restless that it is hard to sit still 2 10/03/2024 3:47 PM EST Bernardo Hargrove MA Becoming easily annoyed or irritable 2 10/03/2024 3:47 PM EST Bernardo Hargrove MA Feeling afraid as if somethi ng awful might happen 2 10/03/2024 3:47 PM EST Bernardo Hargrove MA KADEEM-7 Total Score 17 10/03/2024 3:47 PM EST Deisy Hargrove MA documented as of this encounter Miscellaneous Notes * Telephone Encounter - Nettie Baumann RN - 10/03/2024 11:03 AM EST Triage call with BLS [place] [employer] [place] [id number]. Pt reports having some increased anxiety for [...] . Pt is offered ASK apt in [facility] today at 320[facility] and agrees with this [...] Upcoming Encounters Date Type Department Care Team ([facility] st Contact Info) Description 07/30/2025 10:15 AM EST Office Visit [facility] ADULT DENTAL [address] [place] [address] Fabiola John documented as of this encounter Visit Diagnoses Not on filedocumented in this encounter Additional Health Concerns Assessment Noted Time PHQ-9 Depression Total Score: 16 023 10:38 AM EDT documented as of this encounter Care Teams Rider Ticket Worker Relationship Specialty Start Date End Date Lupe Leal MD [address] [place] [address] PCP - General Family Medicine 07/10/20 documented as of this encounter
--- OUTSIDE RECORDS SUMMARY | 2025-07-23 19:29 | XMS_ITS | Encounter Summary ---
Author Organization [employer] Address [address] [place] [address] Care Team Providers Care Bid Writer Name Role Phone Lupe Leal MD Primary Care Provider [phone] Reason for Visit * Reason Onset Date Comments chart prep 07/22/2025 Encounter Details Date Type Department Care Team ([facility] st Contact Info) Description 07/22/2025 Telephone [facility] MEDICINE [address] [place], [place] [phone] Chantel Feliz CN [address] [place], [place] [phone] chart prep Social History Tobacco Use Types Packs/Day Years [...] encounter Miscellaneous Notes * Telephone Encounter - Loreta Khoury MA - 07/22/2025 2:20 PM EST Chart Prep Labs: not done Images: done Screenings: Mammogram Vaccines due: Covid Due, Tdap Due, Hep B Due, PCV20 Due, Flu Due, and HPV Referrals: Completed Overdue care gaps: PHQ9 and Oral Health documented in this encounter Plan of Treatment Upcoming Encounters Date Type Department Care Team (Late st Contact Info) Description 07/30/2025 10:15 AM EST Office Visit [facility] ADULT DENTAL [address] [place] [address] Fabiola John documented as of this encounter Visit Diagnoses Not on filedocumented in this encounter Additional Health Concerns Assessment Noted Time PHQ-9 Depression Total Score: 12 025 1:57 PM EDT documented as of this encounter Care Teams Bid Writer Relationship Specialty Start Date End Date Lupe Leal MD [address] [place] [id number] PCP - General Family Medicine 07/10/20 documented as of this encounter
--- OUTSIDE RECORDS SUMMARY | 2025-07-23 19:29 | XMS_ITS | Clinical Summary ---
Author Organization [facility] Address [address] [place] [address] Care Team Providers Care Glass Ribbon Machine Operator Assistant Name Role Phone Lupe Leal MD Primary Care Provider [phone] Allergies No known active allergies Medications * This document contains information received from the source organization and may not represent a complete record from that organization. triamcinolone (Kenalog) 0.5 % ointment apply by topical route 2 times every day a thin layer to the affected area(s) 2 Active nicotine polacrilex (Nicorette) 2 MG gum chew 1 piece of gum by oral route every 2 hours as needed and as directed 1 Active Nicotine 21-14-7 MG/24HR kit Use 21 mg patch for 4 weeks, then 14 mg for 2 weeks and then 7 mg for 2 weeks (8 weeks total) 1 Active Multiple Vitamin (multivitamin) tablet Take 1 tablet by mouth in the morning. 90 tablet 1 4 Active magnesium, as gluconate, (Magonate) 500 (27 Mg) MG tablet Take 1 tablet (27 mg) by mouth 2 times daily. 180 tablet 1 4 Active folic acid (Folvite) 400 MCG tablet Take 1 tablet (0.4 mg) by mouth in the morning. 90 tablet 1 4 Active thiamine (Vitamin B-1) 500 MG tablet Take 1 tablet (500 mg) by mouth in the morning. 90 tablet 1 4 Active hydrOXYzine pamoate (Vistaril) 25 MG capsuleIndicatio ns:Anxiety Take 1 capsule (25 mg) by mouth if needed in the morning, at noon, and at bedtime for anxiety. 60 capsule 1 5 Active topiramate (Topamax) 100 MG tabletIndication s:Anxiety Take 1 tablet (100 mg) by mouth Once per day. 90 tablet 1 07/15/2025 4:08 PM EST 5 Active busPIRone (Buspar) 7.5 MG tabletIndication s:Anxiety TAKE 1 TABLET BY MOUTH TWICE A DAY 60 tablet 1 5 Active escitalopram (Lexapro) 10 MG tabletIndication s:Anxiety TAKE 1&1/2 TABLETS EVERY MORNING 135 tablet 1 5 Active cyclobenzaprine (Flexeril) 10 MG tablet Take 10 mg by mouth. 5 Active metroNIDAZOLE (Metrogel) 0.75 % vaginal gel Insert 1 Application. into the vagina at bedtime for 5 doses. One applicator in the vagina every night x 5 nights 70 g 5 07/28/20 25 Active naproxen (Naprosyn) 500 MG tabletIndication s:Migraine without aura and without status migrainosus, not intractable Take 1 tablet (500 mg) by mouth Once daily as needed for headaches. 30 tablet 5 06/23/20 25 Hospital, Clinic, or Other Facility Administered Medication Ordered Dose Route Frequency Start Date End Date Status lidocaine 2 % gelIndications:Encnt r for removal and reinsertion of uterin contracep dev TOP As needed 06/25/2025 Acti ve acetaminophen (Tylenol) tablet 650 mgIndications:Encntr for removal and reinsertion of uterin contracep dev 650 mg PO Once 06/25/2025 06/25/2025 Ende d Levonorgestrel intrauterine device 20.1 mcg/dayIndications:E ncntr for removal and reinsertion of uterin contracep dev 20.1 mcg/day IU Once PRN Procedure 06/25/2025 06/25/2025 Ended Active Problems Problem Noted Date Diagnosed Date Strain of lumbar region 05/23/2025 Generalized bloating 03/02/2024 Assessment & Plan (03/02/2024 6:04 PM EDT): Relevant orders: Buspirone (Buspar) 7.5 MG tablet -Pt was advised if bloating continues despite using the combination of meds, to move forward with the labs so we can properly access her condition. Grief 11/16/2023 Moderate episode of recurren t major depressive disorder (CMS/HCC) 11/16/2023 Sore throat and laryngitis 07/15/2023 Assessment [...] documented hx of Depression, Anxiety, and Grief MH services including OP Psychotherapy psychopharmacology who presents for Anxiety, Depression, [...] lack of motivation. With the use of power cutting machine operator Ajit ID #: [id number], Ese reported she has been using the coping mechanisms provided in previous consult. She reported improvement and it showed in decreased of previous PHQ9 score from 18-12 and KADEEM-7 from 21 to 16. She also verbalized has upcoming appt with therapist through [facility] on 11/29/24 and is aware of [facility]- appt on 12/10/24. PLAN: (check all that apply) Behavioral Health Integration Plan Patient Self Plan Patient to utilize skills provided in intervention , Patient to reach out to [facility] team as needed, Patient to engage in OP therapy , and Patient to engage in Medication Management at [facility]- . Assessment & Plan (03/02/2024 6:05 PM EDT): [...] with therapy. Try to reattempt contact with [facility] [employer] and will f/up in 4-6 weeks [...] referral to therapy (may have to use paint line production supervisor) and prescriber. Failed 2 meds (SSRI, snri) [...] Will follow up in 6 weeks. Encounters Date Type Department Care Team Description 07/23/2025 2:00 PM EST Office Visit [address] [address] Manju Nichols CNM Checking of intrauterine device (Primary Dx); Vaginal discharge 07/23/2025 Travel 07/22/[address] [address] Manju Nichols CNM chart prep 06/25/2025 1:15 PM EDT Procedure Visit [address] [address] Manju Nichols CNM Encntr for removal and reinsertion of uterin contracep dev (Primary Dx); Screening examination for venereal disease 06/25/2025 Travel 06/22/2025 Travel 06/14/[address] [address] Lupe Leal MD Nurse Triage 06/13/2025 Telephone [facility] [address] [facility] [place], [place] [phone] Lupe Leal MD Referral 05/24/2025 1:30 PM EDT Office Visit [facility] [address] [place] [address] Alexandro Doe, ZAFAR Migraine without aura and without status migrainosus, not intractable (Primary Dx); Dehydration; Orthostatic hypotension 05/24/2025 Travel 05/23/2025 Telephone [facility] [address] [place], [place] [phone] Lupe Leal MD chart prep 05/23/2025 Telephone [facility] [address] [place], [place] [phone] Lupe Leal MD Nurse Triage 05/19/2025 Refill [facility] [address] [place], [place] [phone] Lupe Leal MD Anxiety from Last 3 Months Immunizations Immunization Administration Dates Next Due Influenza injectable quadrivalent preservative f ree 07/31/2021,07/10/2020 Social History Tobacco Use Types Packs/Day Years Used Date Smoking Tobacco: Every Day Cigarettes Passive Smoke Exposure: Never Smokeless Tobacco: Never Tobacco Cessation:Ready to Q uit: Not Asked; Counseling Given: Not Answered Alcohol Use Standard Drinks/Week Comments Never 0 [...] Q2 Not on file 09/12/2024 Comments No Intention Date Recorded No desire to become (finding) 0 11/08/2024 Sex and Gender Information Value Date Recorded [...] (112 lb) 07/23/2025 2:22 PM EST Height 154.9 cm (5' 1 ) 05/24/2025 1:09 PM EDT Body Mass Index 21.16 05/24/2025 1:09 PM EDT Plan of Treatment Upcoming Encounters Date Type Department Care Team (Late st Contact Info) Description 07/30/2025 10:15 AM EST Office Visit [facility] [address] [place] [address] Fabiola John Health Maintenance Due Date Last Done Comments HPV Vaccines (1 - 3-dose series) 1995 DTaP/Tdap/Td Vaccines (1 - Tdap) 1999 Hepatitis B Vaccines (1 of 3 - 19+ 3-dose series) 1999 Pneumococcal Vaccine: Pediatrics (0 to 5 Years) and At-Risk Patients (6 to 49) Years (1 of 2 - PCV) 1999 Dental X-Ray: Full Mouth 09/27/2021 09/26/2018 Dental Oral Exam 02/13/2022 08/14/2021, 05/24/2019, 09/26/2018 Dental Prophylaxis 02/13/2022 08/14/2021, 05/24/2019, 09/27/2018 Dental X-Ray: Bitewings 08/15/2022 08/14/20 21, 09/26/2018 COVID-19 Vaccine (2024-2 6 season) 2025 07/03/2021, 01/03/2021, 12/13/2020 Influenza Vaccine (#1) 2025 , 07/10/2020 Mammogram 05/19/2025 05/19/2023 Alcohol/Substance Use Screening 09/12/2025 09/12/2024 SDOH Screening 09/12/2025 09/12/2024 Cervical Cancer Screening 11/08/2025 Family Planning (PISQ) 11/08/2025 11/08/2024 HPV/Cotest 11/08/2025 11/08/2024, 10/07/2020 Pap Smear 11/08/2025 11/08/2024, 10/07/2020 Depression Monitoring 01/20/2026 07/23/2025 , 11/22/2024 Disability Screening 06/22/2026 06/22/2025 Tobacco Screening 06/25/2026 06/25/2025 Lipid Panel 07/15/2028 07/15/2023, 07/10/2020 Zoster Vaccines [...] patient's age to complete this topic Meningococcal B Vaccine Aged Out No l onger eligible based on patient's age to complete [...] 07/23/2025 2: 11 PM EST Vaginal discharge POCT , URINE Routine 06/25/2025 1:48 PM EDT Encntr for removal and reinsertion of uterin contracep dev NC REMOVAL INTRAUTERINE DEVICE IUD Routine 06/25/2025 1:15 PM EDT Encntr for removal and reinsertion of uterin contracep dev NC INSERTION INTRAUTERINE DEVICE IUD Routine 06/25/2025 1:15 PM EDT Encntr for removal and reinsertion of uterin contracep dev HPV DNA, LOW/HIGH RISK Routine 11:38 AM EDT PAP SMEAR Routine 11/08/2024 11:38 AM EDT Abnormal uterine bleeding Cervical cancer screening HEPATITIS C ANTIBODY Routine 07/15/2023 9:41 AM EST Encounter for health-related screening HIV 1/2 ANTIGEN/ANTIBODY, FOURTH GENERATION W/RFL Routine 07/15/2023 9:41 AM EST Encounter for health-related screening LIPID PANEL, STANDARD Routine 07/15/2023 9:41 AM EST Bulimia nervosa, purging type BI MAMMOGRAM SCREENING TOMOSYNTHESIS BILATERAL Routine 05/19/2023 9:30 AM EDT PROPHYLAXIS - ADULT Routine 08/14/2021 1 2:00 AM EST BITEWINGS - 4 RADIOGRAPHIC IMAGES Routine 08/14/2021 12:00 AM EST PERIODIC ORAL EVALUATION - ESTABLISHED PATIENT Routine 08/14/2021 12:00 AM EST INTRAORAL - COMPLETE SERIES OF RADIOGRAPHIC IMAGES Routine 09/26/2018 12:00 AM EST from Last 3 Months or Most Recently Relevant to Health Maintenance Results * POCT fern test, vaginal fluid manually resulted (07/23/2025 2:11 PM EST) [facility] Prep Positive Comment:pH 5.5, pos whiff, p os clue, neg trich, neg yeastg Vaginal Fluid Vaginal structure / Unknown 07/23/2025 2:11 PM EST Manju Nichols CNM POINT OF CARE TEST ENTER/ EDIT ORDERABLES Final Result * POCT , urine manually resulted (06/25/2025 1:48 PM EDT) Preg Test, Ur Negative Negative, Indeterminate, None Detected, Invalid, Specimen unsatisfactory for evaluation, Weakly Positive, 2+ QC Media Lot # [id number] Lot# Expiration Date [id number] Urine 06/25/2025 1:48 PM EDT Manju Nichols CNM POINT OF CARE TEST ENTER/ EDIT ORDERABLES Final Result * NC INSERTION INTRAUTERINE DEVICE IUD, NC REMOVAL INTRAUTERINE DEVICE IUD (06/25/2025 1:15 PM EDT) Manju Oviedo CNM - 06/25/2025 1:15 PM EDT Manju Nichols CNM 06/25/2025 3:15 PM IUD Management Performed by: Manju Nichols CNM Authorized by: Manju Nichols CNM Procedure: IUD removal and insertion Consent obtained by patient, parent, or legal power of chief quality officer - including discussion of procedure risks and benefits, patient questions answered, and patient education provided: yes Other reason for removal: No longer providing menstrual suppression Strings visualized: yes Cervix cleaned with: iodopovidone IUD grasped by forceps: yes IUD removed: yes IUD intact: yes Removal comments: IUD removed, and new IUD inserted risk: reasonably certain the patient is not Date/Time of Insertion: 06/25/2025 1:40 PM Immediately prior to procedure a time out was called: yes Pelvic exam performed: yes Speculum placed in vagina: yes Cervix cleaned and prepped: yes Tenaculum/Allis/Ring Forceps applied to cervix: yes (to anterior lip) Anesthesia used: yes Local anesthesia: Topical Local anesthetic: Lidocaine Anesthetic strength (%): 2 Volume (mL): 3 Uterus sound depth (cm): 9 IUD inserted without complications: yes OSM: 20.1 mcg/day Levonorgestrel 20.1 MCG/DAY Strings trimmed to (cm): 3 Patient tolerated procedure well: yes Estimated blood loss (mL): 5 Intended removal date: 5 years Manju Nichols CNM IN CLINIC/BEDSIDE ORDERAB LES Final Result * (ABNORMAL) HPV DNA, Low/High Risk (11/08/2024 11:38 AM EDT) HPV High Risk Positive(A) Negative [facility] HPV Genotype 16 Negative Negative [facility] HPV Genotype 18 Negative Negative [facility] Comment:HPV testing performe d at [facility] (CLIA#[id number]), [address] [place] [address].Testing for HPV was performed using the Rocio SHANKAR 6800system. The presence of HPV in the female [...] 8 AM EDT 11/09/2024 7:30 AM EDT Manju Nichols CNM LAB BLOOD ORDERABLES Isabel calvin Result [facility] [address] [place] [phone] * Pap Smear (11/08/2024 11:38 AM EDT) Swab Cervix uteri structure / Unknown 11/08/2024 11:38 AM EDT 11/09/2024 7:30 AM EDT Isabelle [facility] - 11/19/2024 2:42 PM EDT ----- ------- Name: Ese Bowen Age/Sex: 44/F : 1980 Unit#: [id number] Attend Dr: MANJU NICHOLS CNM Re11/08/24 Status: [facility] Disch: ----- ------- SPEC : [id number] RECD: 11/09/24 STATUS: REAL WHITEHEAD NUM: [id number] RADHIKA: 11/08/24-1137 [facility] DR: MANJU NICHOLS CNM ENTERED: 11/09/24 SP TYPE: Pap Smr OT DR: ORDERED: Pap Smear Interpretation ABNORMAL PAP TEST. Satisfactory for evaluation, with mildly dysplastic squamous cells / HPV cytopathic change (LANCE 1; low grade squamous intraepithelial lesion). No endocervical cells seen. Coccobacilli consistent with shift in vaginal char. HPV High Risk: Positive HPV Genotyping 16: Negative HPV Genotyping 18: Negative Clinical Information LMP: 10/26/2024 Previous PAP test: Unknown date/findings Other history: IUD Material Received Cervix ----- ------- Signed (signature on file) Geoffrey Benitez MD 11/19/24 1442 ----- ------- END OF REPORT Manju Nichols CNM LAB CYTOLOGY ORDERABLES F inal Result Performing Organization Address [facility] Co de Phone Number [facility] [address] [place] [phone] * Hepatitis C Ab (07/15/2023 9:41 AM EST) Hepatitis C Antibody Nonreactive Nonreactive [facility] Comment:Antibodies to HCV no t detected; does not exclude early acuteHCV infection. Blood 07/15/2023 9:41 AM EST 07/15/2023 2:22 PM EST us Lupe Leal MD LAB BLOOD ORDERABLES Final Re sult Performing Organization Address [facility] Co de Phone Number [facility] [address] [place], [place] [phone] * HIV-1/2 Antigen and Antibodies, Fourth Generation, with Reflexes (07/15/2023 9:41 AM EST) HIV AB/AG Nonreactive Nonreactive [facility] Comment:HIV-1 p24 Ag and/or HIV-1/HIV-2 Ab not detected.A test result that is nonreactive does not exclude thepossibility of exposure to or infection with HIV-1 and/orHIV-2. Nonreactive results in this assay for individualswith prior exposure to HIV-1 and/or HIV-2 may be due toantigen and antibody levels that are below the limit ofdetection of this assay.The [employer] HIV Ag/Ab Combo assay result andsupplemental assay results should be interpreted inconjunction with the patient's clinical presentation,history and other laboratory results. If the results areinconsistent with clinical evidence, additional testing issuggested to confirm the result. Blood Venous blood specimen / Unknown 07/15/2023 9:41 AM EST 07/15/2023 2:22 PM EST us Lupe Leal MD LAB BLOOD ORDERABLES Final Re sult [facility] [address] [place] [phone] * (ABNORMAL) Lipid Panel, Standard (07/15/2023 9:41 AM EST) Triglycerides 82 <150 mg/dL [facility] Comment:Desirable Triglyceri de: less than 150 mg/dLBorderline High Triglyceride 150-199 mg/dLHigh Triglyceride: 200-499 mg/dLVery High Triglyceride: greater than or equal to 5OO mg/dL Cholesterol 200(H) <200 mg/dL [facility] Comment:Desirable Cholestero l: less than 200 mg/dLBorderline High Cholesterol: 200-239 mg/dLHigh Cholesterol: greater than 239 mg/dL LDL Cholesterol Calculated 117(H) <100 mg/dL [facility] Comment:Desirable LDL: less than 100 mg/dLNear Optimal/Above Optimal LDL: 110- 129 mg/dLBorderline High LDL: 130-159 mg/dLHigh LDL: 160-189 mg/dLVery High LDL: greater than or equal to 190 mg/dL HDL Cholesterol 67 >40 mg/dL [facility] Comment:Desirable HDL: great er than 40 mg/dL Note: This HDL assay may give artificially low results in patients with liver disease. Blood Venous blood specimen / Unknown 07/15/2023 9:41 AM EST 07/15/2023 2:26 PM EST us Lupe Leal MD LAB BLOOD ORDERABLES Final Re sult [facility] [address] [place] [address] [phone] * BI Mammogram Screening Tomosynthesis Bilateral (05/19/2023 9:30 AM EDT) Anatomical Region Laterality Modality Breast Bilateral Mammography 05/19/2023 9:30 AM EDT Narrative 06/07/2023 1:10 PM EDT [address] [place] [address] Mammography Report Signed Patient: Ese Bowen MR#: [id number] 53 : 1980 Acct:[id number] Age/Sex: 42 / F ADM Date: 05/19/23 Loc: HO.MAMMO Attending Dr: Lupe Leal MD Ordering Physician: Lupe Leal MD Results: 1Nega tive Date of Service: 05/19/23 Follow Up: 1 Year From [facility] ina Mammogram Procedure(s): MM tomosynthesis screening BI Accession Number(s): [id number] cc: Lupe Leal MD EXAMINATION: MM SCREENING [...] in OV> 06/07/23 1306 DD/ 0930 TD/TT: Edi Analyst: Procedure Note Donotuseinterpreter, Image - 06/07/2023 [facility] [address] [place] [address] Mammography Report Signed Patient: Ese Bowen#: [id number] [birth year] : 1980Acct:[id number] Age/Sex: 42 / FADM Date: 05/19/23 Loc: HO.MAMMO Attending Dr: Lupe Leal MD Ordering Physician: Lupe Leal MDResults: 1Nega tive Date of Service: 05/19/23Follow Up: 1 Year From Orig ina Mammogram Procedure(s): MM tomosynthesis screening BI Accession Number(s): [id number] cc: Lupe Leal MD EXAMINATION: MM SCREENING [...] in OV> 06/07/23 1306 DD/ 0930 TD/TT: Edi Analyst: us Lupe Leal MD IMG BI PROCEDURES Final Resul t from Last 3 Months or Most Recently Relevant to Health Maintenance [facility] [place] [address] [place] [address] [facility] [place] [address] Care Teams Glass Ribbon Machine Operator Assistant Relationship Specialty Start Date End Date Lupe Leal MD [address] [place] [phone] PCP - General Family Medicine 07/10/20
--- OUTSIDE RECORDS SUMMARY | 2025-07-23 19:29 | XMS_ITS | Encounter Summary ---
Author Organization [employer] Address [address] [place] [address] Care Team Providers Care Glass Technician Name Role Phone Lupe Leal MD Primary Care Provider [phone] Encounter Details Date Type Department Care Team (Latest Contact Info) Description 07/23/2025 Travel Social History Tobacco Use Types Packs/Day [...] Health Questionnaire-2 Score 2 06/30 2:08 PM Joseline Dailey MA * Little interest or pleasure in doing things Answer Date of Assessment Author Several days 07/23/2025 2:08 PM Joseline Dailey MA * Feeling down, depressed, or hopeless Answer Date of Assessment Author Several days 07/23/2025 2:08 PM Joseline Dailey MA * Trouble falling or staying asleep, [...] half the days 07/23/2025 2:08 PM Joseline Dailey MA * Trouble concentrating on things, such as reading the newspaper or watching television Answer Date of Assessment Author More than half the days 07/23/2025 2:08 PM Joseline Braga MA * Thoughts that you would be better off or hurting yourself in some way Answer Date of Assessment Author Several days 07/23/2025 2:08 PM EST Joseline Cassidy MA documented as of this encounter Plan of Treatment Upcoming Encounters Date Type Department Care Team (Late st Contact Info) Description 07/30/2025 10:15 AM EST Office Visit [facility] [address] [facility] [place] [address] Fabiola John documented as of this encounter Visit Diagnoses Not on filedocumented in this encounter Additional Health Concerns Assessment Noted Time PHQ-9 Depression Total Score: 12 025 1:57 PM EDT documented as of this encounter Care Teams Glass Technician Relationship Specialty Start Date End Date Lupe Leal MD [address] [place] [address] PCP - General Family Medicine 07/10/20 documented as of this encounter
--- OUTSIDE RECORDS SUMMARY | 2025-07-23 19:29 | XMS_ITS | Encounter Summary ---
Author Organization [employer] Address [address] [place] [address] Care Team Providers Care Sign Designer Name Role Phone Lupe Leal MD Primary Care Provider [phone] Encounter Details Date Type Department Care Team (Latest Contact Info) Description 05/24/2019 Abstract [facility] CONVERSIONS Dental, Provider, DDS Social History Tobacco [...] Description 07/30/2025 10:15 AM EST Office Visit [facility] [address] [place] [address] Fabiola John documented as of this encounter Visit Diagnoses Not on filedocumented in this encounter Care Teams Sign Designer Relationship Specialty Start Date End Date Lupe Leal MD [address] [place] [phone] PCP - General Family Medicine 07/10/20 documented as of this encounter
--- OUTSIDE RECORDS SUMMARY | 2025-07-23 19:29 | XMS_ITS | Encounter Summary ---
Author Organization [employer] Address [address] [place] [address] Care Team Providers Care Aviation Project Engineer Name Role Phone Lupe Leal MD Primary Care Provider [phone] Reason for Visit * Reason Onset Date Comments Med Refill 04/19/2025 Encounter Details Date Type Department Care Team ([facility] st Contact Info) Description 04/19/2025 Telephone [facility] [address] [place] [address] Lupe Leal MD [address] [place] [address] Med Refill Social History Tobacco Use Types [...] encounter Miscellaneous Notes * Telephone Encounter - Gaviota Vital LPN - 04/19/2025 11:26 AM EDT Medication was sent to [facility] on 03/20/25 with 1 refill. Please advise patient to call the pharmacy for a refill. * Telephone Encounter - Magda Chamorro - 04/19/2025 11:20 AM EDT TC from pt requesting medication refill. Medications needing refill : escitalopram (Lexapro) 10 MG tablet To be sent to:[facility] [place] - [address] documented in this encounter Plan of Treatment Upcoming Encounters Date Type Department Care Team (Late st Contact Info) Description 07/30/2025 10:15 AM EST Office Visit [facility] [address] [place] [address] Fabiola John documented as of this encounter Visit Diagnoses Not on filedocumented in this encounter Additional Health Concerns Assessment Noted Time PHQ-9 Depression Total Score: 12 025 1:57 PM EDT documented as of this encounter Care Teams Aviation Project Engineer Relationship Specialty Start Date End Date Lupe Leal MD [address] [place] [address] PCP - General Family Medicine 07/10/20 documented as of this encounter
--- OUTSIDE RECORDS SUMMARY | 2025-07-23 19:29 | XMS_ITS | Encounter Summary ---
Author Organization [employer] Address [address] [place] [address] Care Team Providers Care Tree Sapper Name Role Phone Lupe Leal MD Primary Care Provider [phone] Reason for Visit * Reason Onset Date Comments Med Refill 04/06/2024 Encounter Details Date Type Department Care Team (Late st Contact Info) Description 04/06/2024 Telephone [facility] MED[facility] [address] [place] [address] Lupe Leal MD [address] [place] [address] Med Refill Social History Tobacco Use Types [...] patient requesting med refill for BP however advertising copy writer does not see medication on chart documented in this encounter Plan of Treatment Upcoming Encounters Date Type Department Care Team (Late st Contact Info) Description 07/30/2025 10:15 AM EST Office Visit [facility]ULT [facility]AL [address] [place] [address] Fabiola John documented as of this encounter Visit Diagnoses Not on filedocumented in this encounter Additional Health Concerns Assessment Noted Time PHQ-9 Depression Total Score: 16 023 10:38 AM EDT documented as of this encounter Care Teams Tree Sapper Relationship Specialty Start Date End Date Lupe Leal MD [address] [place] [address] PCP - General Family Medicine 07/10/20 documented as of this encounter
--- OUTSIDE RECORDS SUMMARY | 2025-07-23 19:29 | XMS_ITS | Encounter Summary ---
Author Organization [employer] Address [address] [place] [address] Care Team Providers Care Organic Chemistry Professor Name Role Phone Lupe Leal MD Primary Care Provider [phone] Encounter Details Date Type Department Care Team (Latest Contact Info) Description 08/14/2021 Abstract [facility] CONVERSIONS Dental, Provider, DDS Social History Tobacco [...] Description 07/30/2025 10:15 AM EST Office Visit [facility] ADULT DENTAL [address] [place] [address] Fabiola John documented as of this encounter Visit Diagnoses Not on filedocumented in this encounter Care Teams Organic Chemistry Professor Relationship Specialty Start Date End Date Lupe Leal MD [address] [place] [id number] PCP - General Family Medicine 07/10/20 documented as of this encounter
--- OUTSIDE RECORDS SUMMARY | 2025-07-23 19:29 | XMS_ITS | Encounter Summary ---
Author Organization [employer] Address [address] [place] [address] Care Team Providers Care Senior Data Warehouse Architect Name Role Phone Lupe Leal MD Primary Care Provider [phone] Encounter Details Date Type Department Care Team (Latest Contact Info) Description 09/26/2018 Abstract [facility] CONVERSIONS Dental, Provider, DDS Social History [...] Description 07/30/2025 10:15 AM EST Office Visit [facility] ADULT DENTAL [address] [place] [address] Fabiola John documented as of this encounter Visit Diagnoses Not on filedocumented in this encounter Care Teams Senior Data Warehouse Architect Relationship Specialty Start Date End Date Lupe Leal MD [address] [place] [id number] PCP - General Family Medicine 07/10/20 documented as of this encounter
[2025-07-23 22:49] LABS: Bacterial Vaginosis PCR POSITIVE (Negative); Candida Group PCR NOT DETECTED (Not Detect); Candida glab krusei PCR NOT DETECTED (Not Detect); Trichomonas vaginalis PCR NOT DETECTED (Not Detect)
== END 2025-07-23 14:01 | disposition home or self-care (01) ==
LOC: HO.HHCLNP 14:00
PROVIDERS: Visit Provider Advanced Practice Midwife
DX: N89.8 Other specified noninflammatory disorders of vagina (principal)
CPT/HCPCS: 81515